=== PATIENT | male | born 1950 | race Caucasian/White ===

== ENCOUNTER 2016-08-21 01:24 | Inpatient (IN) | payer OTHER, MEDICARE ==
[~2016-08-21] VITALS: Ht 165.1 cm; Wt 81.2 kg
[2016-08-21] VITALS (7 sets, daily range): BP systolic 104–148; BP diastolic 50–63; PULSE 65–75; RESP 16–20; TEMP 97.4–98.9; O2SAT 95–100
[~2016-08-21 01:24] MED LIST: BP MED UNKNOWN; DULO20 PO; GLIP5 PO; GLUCTAB PO; NOVORP2 SQ; POTA-243 PO; ZOCO40TA PO
--- NOTE | 2016-08-21 01:58 | PD ---
HPI Chief Complaint: Psychiatric Symptoms Time Seen by Provider: 01:50 Travel History International Travel<30 days: No Contact w/Intl Traveler<30days: No Traveled to known affect area: No History of Present Illness HPI 66-year-old male presents under Lemus act initiated by the Police Department. The patient reports that for the past 4 days he has been feeling homicidal. He has had thoughts of hurting other people. He reports that he called the [place] helpline today and they called the police who placed him under a Lemus act. He reports that he doesn't feel that his psychiatric medication is helping. He doesn't remember the name of any of his medications. He is dependent on home oxygen and he believes it is because he has COPD. He admits to marijuana use on a regular basis. Denies any other drug use. Denies any suicidal ideation. He has no medical complaints at this time. PFSH Past Medical History Asthma: Yes (CHILDHOOD) Anxiety: Yes Depression: Yes Cardiac Catheterization: Yes Cardiovascular Problems: Yes (CABG) High Cholesterol: Yes Chest Pain: Yes Cerebrovascular Accident: Yes (TIA) Diabetes: Yes Patient Takes Glucophage: Yes Diminished Hearing: Yes (DEAF IN RIGHT EAR) Hypertension: Yes Respiratory: Yes (COPD) Myocardial Infarction: Yes Influenza Vaccination: Yes Past Surgical History Coronary Artery Bypass Graft: Yes (TRIPLE BYPASS 2004) Coronary Stent: Yes (X 3) Other Surgery: Yes (LEFT LUNG BIOPSY, NO MALIGNANCY FOUND) Social History Alcohol Use: No Tobacco Use: Yes (1-2 CIGARETTES A DAY) Substance Use: Yes (OCC POT.) Allergies-Medications (Allergen,Severity, Reaction): Coded Allergies: Contrast Media (Verified Allergy, Mild, 08/21/16) Reported Meds & Prescriptions Reported Meds & Active Scripts Active Reported Naproxen 500 Mg Tab 500 Mg PO BID Glipizide 10 Mg Tab 10 Mg PO BIDAC Take 30 minutes before a meal Plavix (Clopidogrel Bisulfate) 75 Mg Tab 75 Mg PO DAILY Robaxin (Methocarbamol) 500 Mg Tab 500 Mg PO HS Levothyroxine (Levothyroxine Sodium) 25 Mcg Tab 25 Mcg PO DAILY Zocor (Simvastatin) 40 Mg Tab 40 Mg PO DAILY Aspirin 81 (Aspirin) 81 Mg Tabdr 81 Mg PO DAILY Effexor (Venlafaxine HCl) 75 Mg Tab 75 Mg PO Q12H Carbidopa-Levodopa 10-100 Mg Tab 1 Tab PO Q8HR Ziprasidone 40 Mg Cap 40 Mg PO HS Gabapentin 300 Mg Cap 300 Mg PO TID Hydroxyzine Pamoate 50 Mg Cap 50 Mg PO HS Buspirone (Buspirone HCl) 10 Mg Tab 10 Mg PO TID Divalproex ER (Divalproex Sodium) 500 Mg Tab 500 Mg PO DAILY Lisinopril 5 Mg Tab 5 Mg PO DAILY Review of Systems Except as stated in HPI: all other systems reviewed are Neg Physical Exam Narrative GENERAL: Well-developed well-nourished male in no acute distress SKIN: Warm and dry. HEAD: Atraumatic. Normocephalic. EYES: Pupils equal and round. No scleral icterus. No injection or drainage. ENT: No nasal bleeding or discharge. Mucous membranes pink and moist. NECK: Trachea midline. No JVD. CARDIOVASCULAR: Regular rate and rhythm. No murmur appreciated. RESPIRATORY: No accessory muscle use. Some wheezing noted. GASTROINTESTINAL: Abdomen soft, non-tender, nondistended. Hepatic and splenic margins not palpable. MUSCULOSKELETAL: No obvious deformities. No clubbing. No cyanosis. No edema. NEUROLOGICAL: Awake and alert. No obvious cranial nerve deficits. Motor grossly within normal limits. Normal speech. PSYCHIATRIC: Appropriate mood and affect; insight and judgment normal. Data Data Last Documented VS Vital Signs Date Time Temp Pulse Resp B/P Pulse Ox O2 Delivery O2 Flow Rate FiO2 08/21/16 01:34 98.9 74 20 148/60 95 Orders Complete Blood Count With Diff (08/21/16 01:56) Comprehensive Metabolic Panel (08/21/16 01:56) Psych Screen (08/21/16 01:56) Drug Screen, Random Urine (08/21/16 01:56) Alcohol (Ethanol) (08/21/16 01:56) Salicylates (Aspirin) (08/21/16 01:56) Tylenol (Acetaminophen) (08/21/16 01:56) Labs Laboratory Tests Test 08/21/16 02:25 White Blood Count 9.2 TH/MM3 Red Blood Count 4.55 MIL/MM3 Hemoglobin 14.0 GM/DL Hematocrit 41.6 % Mean Corpuscular Volume 91.3 FL Mean Corpuscular Hemoglobin 30.8 PG Mean Corpuscular Hemoglobin 33.7 % Concent Red Cell Distribution Width 14.6 % Platelet Count 214 TH/MM3 Mean Platelet Volume 7.8 FL Neutrophils (%) (Auto) 62.0 % Lymphocytes (%) (Auto) 26.0 % Monocytes (%) (Auto) 6.7 % Eosinophils (%) (Auto) 4.3 % Basophils (%) (Auto) 1.0 % Neutrophils # (Auto) 5.7 TH/MM3 Lymphocytes # (Auto) 2.4 TH/MM3 Monocytes # (Auto) 0.6 TH/MM3 Eosinophils # (Auto) 0.4 TH/MM3 Basophils # (Auto) 0.1 TH/MM3 CBC Comment DIFF FINAL Differential Comment Sodium Level 145 MEQ/L Potassium Level 4.2 MEQ/L Chloride Level 107 MEQ/L Carbon Dioxide Level 30.6 MEQ/L Anion Gap 7 MEQ/L Blood Urea Nitrogen 19 MG/DL Creatinine 1.26 MG/DL Estimat Glomerular Filtration 57 ML/MIN Rate Random Glucose 103 MG/DL Calcium Level 8.6 MG/DL Total Bilirubin 0.5 MG/DL Aspartate Amino Transf 11 U/L (AST/SGOT) Alanine Aminotransferase LESS THAN 6 U/L (ALT/SGPT) Alkaline Phosphatase 74 U/L Total Protein 6.9 GM/DL Albumin 3.5 GM/DL Salicylates Level LESS THAN 1.7 MG/DL Acetaminophen Level LESS THAN 2.0 MCG/ML Ethyl Alcohol Level LESS THAN 3 MG/DL MDM Medical Decision Making Medical Screen Exam Complete: Yes Emergency Medical Condition: Yes Medical Record Reviewed: Yes Differential Diagnosis Acute psychosis, major depressive disorder, adjustment reaction, substance induced mood disorder, bipolar disorder Narrative Course 66-year-old male presents under Lemus act for psychiatric evaluation. Mental health screening discussed with the patient. Psychiatric screen ordered. He is medically cleared for psychiatric disposition. Diagnosis Primary Impression: Medical clearance for psychiatric admission Raymond Arzate Aug 21, 2016 01:57
[2016-08-21] MEDS ORDERED: BUSP10TA PO (02:12)
[2016-08-21] MEDS ORDERED: LEVO25TA4 PO (02:12)
[2016-08-21] MEDS ORDERED: GLIP10TA6 PO (02:12)
[2016-08-21] MEDS ORDERED: LISI-519 PO (02:12)
[2016-08-21] MEDS ORDERED: HYDR50CA PO (02:12)
[2016-08-21] MEDS ORDERED: ASPI-110 PO (02:12)
[2016-08-21] MEDS ORDERED: ZIPR1CAP8 PO (02:12)
[2016-08-21] MEDS ORDERED: DIVA500T3 PO (02:12)
[2016-08-21] MEDS ORDERED: ROBA500T PO (02:12)
[2016-08-21] MEDS ORDERED: CARB10TA2 PO (02:12)
[2016-08-21] MEDS ORDERED: GABA300C5 PO (02:12)
[2016-08-21] MEDS ORDERED: PLAV75TA29 PO (02:12)
[2016-08-21] MEDS ORDERED: VENL75TA PO (02:12)
[2016-08-21] MEDS ORDERED: NAPR500T PO (02:12)
[2016-08-21] MEDS ORDERED: ZOCO40TA PO (02:12)
[2016-08-21 03:02] LABS: ALT (GPT) LESS THAN 6 U/L (12-78); ANION GAP 7 MEQ/L (5-15); AST (GOT) 11 U/L (15-37); BICARBONATE 30.6 MEQ/L (21.0-32.0); BLOOD UREA NITROGEN 19 MG/DL (7-18); CHLORIDE 107 MEQ/L (98-107); GLOMERULAR FILTRATION RATE 57 ML/MIN (>89); POTASSIUM 4.2 MEQ/L (3.5-5.1); SODIUM (NA) 145 MEQ/L (136-145)
[2016-08-21 03:04] LABS: AUTOMATED NEUTROPHIL # 5.7 TH/MM3 (1.8-7.7); BASOPHIL # 0.1 TH/MM3 (0-0.2); EOSINOPHIL # 0.4 TH/MM3 (0-0.4); EOSINOPHIL % 4.3 % (0.0-4.0); HEMATOCRIT 41.6 % (39.0-51.0); HEMO FLAGS DIFF FINAL; LYMPHOCYTE # 2.4 TH/MM3 (1.0-4.8); MEAN CELL VOLUME 91.3 FL (80.0-100.0); MEAN CORPUSCULAR HEMOGLOBIN 30.8 PG (27.0-34.0); MEAN CORPUSCULAR HGB CONC 33.7 % (32.0-36.0); MONO % 6.7 % (0.0-8.0); PLATELET COUNT 214 TH/MM3 (150-450); RED BLOOD COUNT 4.55 MIL/MM3 (4.50-5.90); RED CELL DISTRIBUTION WIDTH 14.6 % (11.6-17.2); WHITE BLOOD COUNT 9.2 TH/MM3 (4.0-11.0)
[2016-08-21 03:05] LABS: ACETAMINOPHEN LESS THAN 2.0 MCG/ML (10.0-30.0); ALKALINE PHOSPHATASE 74 U/L (45-117); TOTAL BILIRUBIN ADULT 0.5 MG/DL (0.2-1.0)
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
[2016-08-21] MEDS ORDERED: ACETAMINOPHEN 325 MG TAB PO PRN (09:45)
[2016-08-21] MEDS ORDERED: DEXTROSE 50% IN WATER 50 ML VIAL(D50) IV PUSH PRN (09:45)
[2016-08-21] MEDS ORDERED: ALUMINUM/MAGNESIUM/SIMETH 30 ML CUP PO PRN (09:45)
[2016-08-21] MEDS ORDERED: MAGNESIUM HYDROXIDE SUSP 30 ML CUP PO PRN (09:45)
[2016-08-21] MEDS ORDERED: diphenhydrAMINE HCL 50 MG CAP PO PRN (09:45)
[2016-08-21] MEDS ORDERED: LORazepam 2 MG/ML VIAL IM PRN (09:45)
[2016-08-21] MEDS ORDERED: diphenhydrAMINE HCL 50 MG/ML VIAL IM PRN (09:45)
[2016-08-21] MEDS ORDERED: GLUCAGON 1 MG/ML VIAL OTHER PRN (09:45)
[2016-08-21] MEDS ORDERED: LORazepam 0.5 MG TAB PO PRN (09:45)
[2016-08-21] MEDS ORDERED: INSULIN ASPART SUPPLEMENTAL SCALE SQ SCH (11:00)
[2016-08-21] MEDS: INSULIN ASPART SUPPLEMENTAL SCALE SQ SCH ×3 (11:00→21:00)
[2016-08-21] MEDS: GABAPENTIN 300 MG CAP PO SCH ×2 (15:16→18:24)
[2016-08-21] MEDS: VENLAFAXINE HCL XR 75 MG CAP PO SCH (15:17)
[2016-08-21] MEDS: CARBIDOPA/LEVODOPA 10 MG/100 MG TAB PO SCH ×2 (15:17→21:45)
[2016-08-21] MEDS: glipiZIDE 10 MG TAB PO SCH (15:17)
[2016-08-21] MEDS: busPIRone HCL 10 MG TAB PO SCH ×2 (15:17→18:24)
[2016-08-21] MEDS ORDERED: RESP: ALBUTEROL 0.63 MG/3 ML NEB (PRN) NEB (16:30)
--- NOTE | 2016-08-21 16:33 | PD.CONS ---
[facility] By Dr. Gonzalez Reason for Consult Medical management [facility]: History of Present Illness This is a 66-year-old male who was brought in under a police Lemus act due to homicidal ideations. He has had thoughts of hurting other people. He reports that he called the [place] helpline today and they called the police who placed him under a Lemus act. He reports that he doesn't feel that his psychiatric medication is helping. He doesn't remember the name of any of his medications. Consultation was requested to evaluate and manage multiple medical conditions which are COPD, chronic respiratory failure on home oxygen, coronary artery disease status post stent and CABG, hyperlipidemia, hypertension, diabetes mellitus, TIA, hypothyroidism and PD. At this time he denies being homicidal. No complaints of fever, chills, cough and chest pain. He has chronic dyspnea on exertion which is stable. On exam he has mild expiratory wheezes oxygen saturation 100% on 2 L. Review of Systems Constitutional: DENIES: Diaphoretic episodes, Fatigue, Fever, Weight gain, Weight loss, Chills, Dizziness, Change in appetite, Night Sweats Endocrine: DENIES: Heat/cold intolerance, Polydipsia, Polyuria, Polyphagia Eyes: DENIES: Blurred vision, Diplopia, Vision loss, Photosensitivity Ears, nose, mouth, throat: DENIES: Tinnitus, Vertigo, Throat pain, Hoarseness, Epistaxis, Odynophagia Respiratory: COMPLAINS OF: Wheezing, Shortness of breath, DENIES: Cough, Hemoptysis, Sputum production Cardiovascular: DENIES: Chest pain, Palpitations, Syncope, Dyspnea on Exertion , PND, Lower Extremity Edema, Orthopnea, Claudication Gastrointestinal: DENIES: Abdominal pain, Black stools, Bloody stools, Constipation, Diarrhea, Nausea, Vomiting, Difficulty Swallowing, Anorexia Genitourinary: DENIES: Urinary frequency, Urinary incontinence, Urgency, Hematuria, Dysuria, Nocturia, Penile Discharge Integumentary: DENIES: Rash Neurologic: DENIES: Headache, Localized weakness, Seizures, Tremor, Poor Balance Psychiatric: COMPLAINS OF: Homicidal Ideation, DENIES: Anxiety, Confusion, Depression, Hallucinations, Agitation, Suicidal Ideation, Delusions Past Family Social History Allergies: Coded Allergies: Contrast Media (Verified Allergy, Mild, 08/21/16) Past Medical History As previously mentioned Past Surgical History As previously mentioned Reported Medications Naproxen 500 Mg Tab 500 Mg PO BID Glipizide 10 Mg Tab 10 Mg PO BIDAC Take 30 minutes before a meal Plavix (Clopidogrel Bisulfate) 75 Mg Tab 75 Mg PO DAILY Robaxin (Methocarbamol) 500 Mg Tab 500 Mg PO HS Levothyroxine (Levothyroxine Sodium) 25 Mcg Tab 25 Mcg PO DAILY Zocor (Simvastatin) 40 Mg Tab 40 Mg PO DAILY Aspirin 81 (Aspirin) 81 Mg Tabdr 81 Mg PO DAILY Effexor (Venlafaxine HCl) 75 Mg Tab 75 Mg PO Q12H Carbidopa-Levodopa 10-100 Mg Tab 1 Tab PO Q8HR Ziprasidone 40 Mg Cap 40 Mg PO HS Gabapentin 300 Mg Cap 300 Mg PO TID Hydroxyzine Pamoate 50 Mg Cap 50 Mg PO HS Buspirone (Buspirone HCl) 10 Mg Tab 10 Mg PO TID Divalproex ER (Divalproex Sodium) 500 Mg Tab 500 Mg PO DAILY Lisinopril 5 Mg Tab 5 Mg PO DAILY Family History Diabetes mellitus Social History Smokes 1-2 cigarettes a day occasional alcohol use abuse marijuana Physical Exam Vital Signs Vital Signs Date Time Temp Pulse Resp B/P Pulse Ox O2 Delivery O2 Flow Rate FiO2 08/21/16 15:59 100 Nasal Cannula 2.00 08/21/16 11:45 97.4 72 19 125/60 100 08/21/16 11:26 75 16 141/63 98 Room Air 08/21/16 08:34 65 16 104/50 98 Nasal Cannula 3 08/21/16 01:34 98.9 74 20 148/60 95 Physical Exam GENERAL: This is a well-nourished, well-developed patient, in no apparent distress. SKIN: No rashes, ecchymoses or lesions. Cool and dry. HEAD: Atraumatic. Normocephalic. No temporal or scalp tenderness. EYES: Pupils equal round and reactive. Extraocular motions intact. No scleral icterus. No injection or drainage. ENT: Nose without bleeding, purulent drainage or septal hematoma. Throat without erythema, tonsillar hypertrophy or exudate. Uvula midline. Airway patent. NECK: Trachea midline. No JVD or lymphadenopathy. Supple, nontender, no meningeal signs. CARDIOVASCULAR: Regular rate and rhythm without murmurs, gallops, or rubs. RESPIRATORY: Mild expiratory wheezes GASTROINTESTINAL: Abdomen soft, non-tender, nondistended. No guarding. MUSCULOSKELETAL: Extremities without clubbing, cyanosis, or edema. No joint tenderness, effusion, or edema noted. No calf tenderness. Negative Homans sign bilaterally. NEUROLOGICAL: Awake and alert. Cranial nerves II through XII intact. Motor and sensory grossly within normal limits. Five out of 5 muscle strength in all muscle groups. Normal speech. Laboratory Laboratory Tests Test 08/21/16 08/21/16 02:25 14:20 White Blood Count 9.2 Red Blood Count 4.55 Hemoglobin 14.0 Hematocrit 41.6 Mean Corpuscular Volume 91.3 Mean Corpuscular Hemoglobin 30.8 Mean Corpuscular Hemoglobin 33.7 Concent Red Cell Distribution Width 14.6 Platelet Count 214 Mean Platelet Volume 7.8 Neutrophils (%) (Auto) 62.0 Lymphocytes (%) (Auto) 26.0 Monocytes (%) (Auto) 6.7 Eosinophils (%) (Auto) 4.3 Basophils (%) (Auto) 1.0 Neutrophils # (Auto) 5.7 Lymphocytes # (Auto) 2.4 Monocytes # (Auto) 0.6 Eosinophils # (Auto) 0.4 Basophils # (Auto) 0.1 CBC Comment DIFF FINAL Differential Comment Sodium Level 145 Potassium Level 4.2 Chloride Level 107 Carbon Dioxide Level 30.6 Anion Gap 7 Blood Urea Nitrogen 19 Creatinine 1.26 Estimat Glomerular Filtration 57 Rate Random Glucose 103 Calcium Level 8.6 Total Bilirubin 0.5 Aspartate Amino Transf 11 (AST/SGOT) Alanine Aminotransferase LESS THAN 6 (ALT/SGPT) Alkaline Phosphatase 74 Total Protein 6.9 Albumin 3.5 Salicylates Level LESS THAN 1.7 Acetaminophen Level LESS THAN 2.0 Valproic Acid (Depakene) Level 23 Ethyl Alcohol Level LESS THAN 3 Ammonia 26 Result Diagram: 08/21/1622408/21/16224 Assessment and Plan Assessment and Plan This is a 66-year-old male who was brought in under a police Lemus act due to homicidal ideations. He has had thoughts of hurting other people. Consultation was requested to evaluate and manage multiple medical conditions which are COPD, chronic respiratory failure on home oxygen, coronary artery disease status post stent and CABG, hyperlipidemia, hypertension, diabetes mellitus, TIA, hypothyroidism and PD. COPD with chronic respiratory failure. Patient with active wheezing but denies cough, fever and shortness of breath. Restart nebulization and continue oxygen. Consider steroids Coronary artery disease status post stent and CABG. Patient denies chest pain. Continue aspirin, Plavix, statin. No beta hermila for now secondary to COPD Hypertension. Stable continue to monitor. Lisinopril currently on hold by attending Diabetes mellitus. Continue glipizide and monitor fingerstick with sliding scale coverage. Obtain A1c. Hyperlipidemia. Continue statin follow-up lipid profile TIA. Stable continue antiplatelets Hypothyroidism continue Synthroid and follow-up TSH PD. Continue Sinemet. DVT prophylaxis patient ambulatory Discussed Condition With Patient Kenneth Vincent MD Aug 21, 2016 16:33
[2016-08-21 17:38] LABS: BLOOD, URINE NEG (NEG); COMMENT (UR) CULT NOT INDICATED; CULTURE IF INDICATED CULT NOT INDICATED; GLUCOSE,URINE 300 mg/dL (NEG); KETONE, URINE NEG (NEG); NITRITE,URINE NEG (NEG); URINE COLOR YELLOW (YELLW/STRAW)
--- NOTE | 2016-08-21 17:46 | RADRPT ---
EXAM DATE/TIME: 08/21/2016 16:56 [place] COMPARISON: No previous studies available for comparison. INDICATIONS : Cough and difficulty breathing. MEDICAL HISTORY : Hypertension. Hypercholesterolemia. Chronic obstructive pulmonary disease. TIA. Diabetes. SURGICAL HISTORY : Coronary artery stent. CABG. ENCOUNTER: Initial ACUITY: 1 day PAIN SCORE: 0/10 LOCATION: Bilateral chest FINDINGS: The cardiac silhouette is normal in transverse diameter. Median sternotomy wires are present. There a re findings of congestive heart failure with interstitial and alveolar opacity bilaterally. Small noam ateral pleural effusions are identified. CONCLUSION: 1. Cardiomegaly and findings of congestive heart failure. Marck Bro MD on August 21, 2016 at 17:44 Board Certified Radiologist. This report was verified electronically.
[2016-08-21 18:22] LABS: AMPHETAMINE, URINE NEG (NEG); BARBITURATES, URINE NEG (NEG); COCAINE, URINE NEG (NEG)
[2016-08-21] MEDS: ZIPRASIDONE HCL 40 MG CAP PO SCH (18:23)
[2016-08-21] MEDS: RESP: ALBUTEROL 2.5 MG/IPRATROPIUM 0.5 MG NEB (SCH) NEB (20:13)
[2016-08-21] MEDS: METHOCARBAMOL 500 MG TAB PO SCH (21:45)
[2016-08-22 06:00] VITALS: BP 105/57; PULSE 66; RESP 16; TEMP 98.1; O2SAT 99
[2016-08-22] MEDS: glipiZIDE 10 MG TAB PO SCH ×2 (06:15→16:00)
[2016-08-22] MEDS: CARBIDOPA/LEVODOPA 10 MG/100 MG TAB PO SCH ×3 (06:15→21:01)
[2016-08-22] MEDS: INSULIN ASPART SUPPLEMENTAL SCALE SQ SCH ×4 (06:16→20:58)
[2016-08-22] MEDS: RESP: ALBUTEROL 2.5 MG/IPRATROPIUM 0.5 MG NEB (SCH) NEB ×4 (08:00→20:00)
[2016-08-22 08:29] LABS: ANION GAP 7 MEQ/L (5-15); BICARBONATE 30.9 MEQ/L (21.0-32.0); BLOOD UREA NITROGEN 18 MG/DL (7-18); CHLORIDE 102 MEQ/L (98-107); FREE T4 0.72 NG/DL (0.76-1.46); GLOMERULAR FILTRATION RATE 84 ML/MIN (>89); LDL CHOLESTEROL 61 MG/DL (0-99); SODIUM (NA) 140 MEQ/L (136-145)
[2016-08-22 08:58] VITALS: O2SAT 94
[2016-08-22] MEDS: ZIPRASIDONE HCL 40 MG CAP PO SCH (09:00)
[2016-08-22] MEDS ORDERED: LEVOTHYROXINE SODIUM 25 MCG TAB PO SCH (09:00)
[2016-08-22] MEDS: GABAPENTIN 300 MG CAP PO SCH ×3 (09:01→16:49)
[2016-08-22] MEDS: PRAVASTATIN SOD 80 MG TAB PO SCH (09:02)
[2016-08-22] MEDS: VENLAFAXINE HCL XR 75 MG CAP PO SCH (09:02)
[2016-08-22] MEDS: CLOPIDOGREL 75 MG TAB PO SCH (09:02)
[2016-08-22] MEDS: DIVALPROEX SODIUM E.R. 500 MG TAB PO SCH (09:02)
[2016-08-22] MEDS: ASPIRIN EC 81 MG TABEC PO SCH (09:02)
[2016-08-22] MEDS: busPIRone HCL 10 MG TAB PO SCH ×3 (09:03→16:49)
[2016-08-22] MEDS: NICOTINE 21 MG/24 HR PATCH T-DERMAL SCH (09:03)
--- NOTE | 2016-08-22 14:39 | HHI.PYPN ---
Subjective Remarks Patient seen and examined with nurse. Chart reviewed. Case discussed with nursing staff who reports patient is pleasant and cooperative. On my examination today, the patient complains of feeling irritable still. He denies any homicidal ideation but notes that there is no one around on the unit to provoke him. Affect remains a little dysphoric. Says he had trouble sleeping last night. He misses the Seroquel that he normally takes. We discussed using Seroquel as his primary mood stabilizer as this would be better in light of his Parkinson's disease and also could help with sleep, potentially replacing 3 of his medications with a single psychotropic. He is in agreement with this plan. Denies side effects from current medications. Review of Systems Except as stated in HPI: all other systems reviewed are Neg Objective Alert: Yes [place]: Person, Place (at least), Situation Mood: Other (irritable) Affect: Other (somewhat dysphoric) Memory Intact: Comment (intact on clinical exam) Hallucinations: Other (no AVH) Delusions: No Delusion Type: Other (no delusions) Suicidal: Ideation (no SI) Homicidal: Ideation (no HI) Insight/Judgement Fair Remarks No motor abnormalities noted. Thought process linear. Speech within normal limits for rate, tone and volume. Labs Test 08/22/16 05:55 Sodium Level 140 MEQ/L Potassium Level 4.0 MEQ/L Chloride Level 102 MEQ/L Carbon Dioxide Level 30.9 MEQ/L Anion Gap 7 MEQ/L Blood Urea Nitrogen 18 MG/DL Creatinine 0.91 MG/DL Estimat Glomerular Filtration 84 ML/MIN Rate Random Glucose 151 MG/DL Calcium Level 9.5 MG/DL Triglycerides Level 131 MG/DL Cholesterol Level 118 MG/DL LDL Cholesterol 61 MG/DL HDL Cholesterol 31.0 MG/DL Cholesterol/HDL Ratio 3.80 RATIO Free Thyroxine 0.72 NG/DL Thyroid Stimulating Hormone 2.010 uIU/ML 3rd Gen Labs reviewed. TSH within normal limits. Renal function improved. Vitals/IOs Vital Signs Date Time Temp Pulse Resp B/P Pulse Ox O2 Delivery O2 Flow Rate FiO2 08/22/16 08:58 94 Nasal Cannula 2.00 08/22/16 06:00 98.1 66 16 105/57 Intake and Output 08/21/16 08/21/16 08/22/16 08:00 16:00 00:00 Intake Total 360 ml 360 ml Balance 360 ml 360 ml Assessment & Plan Problem List: (1) Bipolar disorder ICD Code: F31.9 (2) Cannabis abuse ICD Code: F12.10 Assessment & Plan Add Seroquel 100 mg at bedtime. Patient was able to tolerate 50 mg dose at bedtime as a home dose. Discontinue Geodon. Continue Effexor and BuSpar along with Depakote as ordered. To consider further titration of Depakote and Seroquel for mood stabilization. Risks and benefits of above med changes discussed with patient, and he is in agreement. Appreciate hospitalist workday consultant input. Continue other medications and care as ordered. Justification for Cont. Inpt. Monitoring for impairments in safety. Medication changes in process. Risk of decompensation in a less restrictive environment. Discharge Planning Pending psychiatric stabilization. I anticipate the patient will require an additional 3-5 inpatient days. Request HC Surrog/Guard Advoc?: No Problem Qualifiers (1) Bipolar disorder: Qualified Code: F31.4 - Bipolar disorder, current episode depressed, severe, without psychotic features Marck Gonzalez MD Aug 22, 2016 14:39
[2016-08-22 16:17] LABS: HEMOGLOBIN A1a 1.2 %; HEMOGLOBIN A1b 2.1 %; HEMOGLOBIN Ao 82.1 %; HEMOGLOBIN LA1C 2.4 %; HEMOGLOBIN P3 4.2 %
[2016-08-22 20:00] VITALS: BP 113/56; PULSE 99; RESP 16; TEMP 98; O2SAT 96
[2016-08-22] MEDS ORDERED: QUEtiapine FUMARATE 100 MG TAB PO SCH (21:00)
[2016-08-22] MEDS: METHOCARBAMOL 500 MG TAB PO SCH (21:01)
[2016-08-22] MEDS: diphenhydrAMINE HCL 50 MG CAP PO PRN (21:01)
[2016-08-22 21:13] VITALS: O2SAT 96
[2016-08-23] MEDS: CARBIDOPA/LEVODOPA 10 MG/100 MG TAB PO SCH ×3 (05:35→20:53)
[2016-08-23] MEDS: glipiZIDE 10 MG TAB PO SCH ×2 (05:35→16:00)
[2016-08-23] MEDS: LEVOTHYROXINE SODIUM 25 MCG TAB PO SCH (05:35)
[2016-08-23] MEDS: INSULIN ASPART SUPPLEMENTAL SCALE SQ SCH ×4 (05:55→20:52)
[2016-08-23 06:00] VITALS: BP 115/66; PULSE 85; RESP 17; TEMP 97.7; O2SAT 94
[2016-08-23] MEDS: RESP: ALBUTEROL 2.5 MG/IPRATROPIUM 0.5 MG NEB (SCH) NEB ×4 (08:00→19:31)
[2016-08-23 08:57] VITALS: O2SAT 100
[2016-08-23] MEDS: REMOVE OLD PATCH T-DERMAL SCH (09:00)
[2016-08-23] MEDS: NICOTINE 21 MG/24 HR PATCH T-DERMAL SCH (09:16)
[2016-08-23] MEDS: VENLAFAXINE HCL XR 75 MG CAP PO SCH (09:17)
[2016-08-23] MEDS: ASPIRIN EC 81 MG TABEC PO SCH (09:17)
[2016-08-23] MEDS: PRAVASTATIN SOD 80 MG TAB PO SCH (09:17)
[2016-08-23] MEDS: GABAPENTIN 300 MG CAP PO SCH ×3 (09:17→17:31)
[2016-08-23] MEDS: CLOPIDOGREL 75 MG TAB PO SCH (09:17)
[2016-08-23] MEDS: busPIRone HCL 10 MG TAB PO SCH ×3 (09:17→17:31)
[2016-08-23] MEDS: DIVALPROEX SODIUM E.R. 500 MG TAB PO SCH (09:17)
--- NOTE | 2016-08-23 10:03 | HHI.PYPN ---
Subjective Remarks Patient seen and examined. Chart reviewed. Case discussed with nursing staff who reports patient slept well overnight and denies any suicidal or homicidal ideation. On my examination today, the patient presents as irritable and dysphoric. He says that he is "upset. I don't give a damn." Denies any specific trigger, just says that he is feeling irritable this morning. "I don' t want nobody around me." Notes that he was able to sleep through the night but awoke at 4:30am to void and could not get back to sleep. No SI/HI. Denies side effects from meds. Agreeable to med adjustments as detailed below. Review of Systems Except as stated in HPI: all other systems reviewed are Neg Objective Alert: Yes [place]: Person, Place, Situation Mood: Other (irritable) Affect: Restricted (dysphoric) Memory Intact: Comment (intact on clinical exam) Hallucinations: Other (denies AVH) Delusions: No Delusion Type: Other (no delusions elicited) Suicidal: Ideation (no SI) Homicidal: Ideation (no HI) Insight/Judgement Fair Remarks No new motor abnormalities noted. Thought process linear. Speech within normal limits. Labs Labs reviewed Vitals/IOs Vital Signs Date Time Temp Pulse Resp B/P Pulse Ox O2 Delivery O2 Flow Rate FiO2 08/23/16 08:57 100 Nasal Cannula 2.00 08/23/16 06:00 97.7 85 17 115/66 Intake and Output 08/22/16 08/22/16 08/23/16 08:00 16:00 00:00 Intake Total 600 ml 1440 ml Balance 600 ml 1440 ml Assessment & Plan Problem List: (1) Bipolar disorder ICD Code: F31.9 (2) Cannabis abuse ICD Code: F12.10 Assessment & Plan Titrate Seroquel to 150 mg at bedtime for mood stabilization. Continue Depakote as ordered for now but to consider titrating this medication into the therapeutic range. Continue Effexor and BuSpar as ordered. Continue to monitor on the inpatient unit. Continue other medications include care as ordered. Justification for Cont. Inpt. Monitoring for impairments in safety. Medication changes in process. Risk for decompensation pending psychiatric stabilization. Discharge Planning Pending psychiatric stabilization. I would anticipate discharge middle of next week. Request HC Surrog/Guard Advoc?: No Problem Qualifiers (1) Bipolar disorder: Qualified Code: F31.4 - Bipolar disorder, current episode depressed, severe, without psychotic features Marck Gonzalez MD Aug 23, 2016 10:03
[2016-08-23] MEDS ORDERED: PILL SPLITTER OTHER PRN (11:00)
--- NOTE | 2016-08-23 11:44 | HHI.PR ---
Subjective Remarks Follow-up on patient with COPD with chronic respiratory failure, hypertension, diabetes and CAD status post stent and CABG. Patient seen and examined today. Patient reports cough without sputum production. Complains of wheezing. Denies any chest pain or abdominal pain. No nausea or vomiting. No fever. Objective Vitals Vital Signs Date Time Temp Pulse Resp B/P Pulse Ox O2 Delivery O2 Flow Rate FiO2 08/23/16 08:57 100 Nasal Cannula 2.00 08/23/16 06:00 97.7 85 17 115/66 94 08/22/16 21:13 96 Nasal Cannula 2.00 08/22/16 20:00 98.0 99 16 113/56 96 I/O 08/22/16 08/22/16 08/22/16 08/23/16 08/23/16 08/23/16 07:00 15:00 23:00 07:00 15:00 23:00 Intake Total 0 ml 600 ml 1440 ml 0 ml Balance 0 ml 600 ml 1440 ml 0 ml Intake Oral 0 ml 600 ml 1440 ml 0 ml # Voids 1 2 2 Result Diagram: 08/21/16 0225 08/22/16 0555 Imaging Last Impressions Chest X-Ray 08/21/16 0000 Signed Impressions: Service Date/Time: Sunday, August 21, 2016 16:56 - CONCLUSION: 1. Cardiomegaly and findings of congestive heart failure. Marck Bro MD Objective Remarks GENERAL: This is a well-nourished, well-developed patient, in no apparent distress. Awake, lying in hospital bed. SKIN: No rashes, ecchymoses or lesions. Cool and dry. HEAD: Atraumatic. Normocephalic. EYES: EOMI. NECK: Trachea midline. No JVD or lymphadenopathy. Supple, nontender, no meningeal signs. CARDIOVASCULAR: Regular rate and rhythm without murmurs, gallops, or rubs. RESPIRATORY: Significant expiratory wheezes noted with scattered rhonchi. GASTROINTESTINAL: Abdomen soft, non-tender, nondistended. No guarding. MUSCULOSKELETAL: Extremities without clubbing, cyanosis, or edema. No joint tenderness, effusion, or edema noted. No calf tenderness. NEUROLOGICAL: Awake and alert. Cranial nerves II through XII intact. Motor and sensory grossly within normal limits. Five out of 5 muscle strength in all muscle groups. Normal speech. Medications and IVs Current Medications Medications (Trade) Dose Ordered Sig/Sherry Route Start Time Stop Time Status Last Admin (Ativan) 0.5 mg Q12H PRN PO 08/21/16 09:45 (Ativan Inj) 0.5 mg Q12H PRN IM 08/21/16 09:45 (Benadryl) 50 mg Q6H PRN PO 08/21/16 09:45 08/22/16 21:01 (Benadryl Inj) 50 mg Q6H PRN IM 08/21/16 09:45 (Benadryl) 50 mg HS PRN PO 08/21/16 09:45 08/21/16 21:45 (Tylenol) 650 mg Q4H PRN PO 08/21/16 09:45 (Milk Of Magnesia Liq) 30 ml DAILY PRN PO 08/21/16 09:45 (Mag-Al Plus Susp Liq) 30 ml Q6H PRN PO 08/21/16 09:45 (Habitrol 21 Mg Patch.24 Hr) 1 patch DAILY T-DERMAL 08/22/16 09:00 08/23/16 09:16 Miscellaneous Information 1 DAILY T-DERMAL 08/23/16 09:00 08/23/16 09:00 (Ecotrin Ec) 81 mg DAILY PO 08/22/16 09:00 08/23/16 09:17 (Buspar) 10 mg TID PO 08/21/16 13:00 08/23/16 12:58 (Sinemet 10-100 Mg) 1 tab Q8HR PO 08/21/16 14:00 08/23/16 12:59 (Plavix) 75 mg DAILY PO 08/22/16 09:00 08/23/16 09:17 (Depakote Er) 500 mg DAILY PO 08/22/16 09:00 08/23/16 09:17 (Neurontin) 300 mg TID PO 08/21/16 13:00 08/23/16 12:58 (Glucotrol) 10 mg BIDAC PO 08/21/16 16:00 08/23/16 05:35 (Robaxin) 500 mg HS PO 08/21/16 21:00 08/22/16 21:01 (Pravachol) 80 mg DAILY PO 08/22/16 09:00 08/23/16 09:17 (Effexor Xr) 150 mg DAILY PO 08/21/16 11:00 08/23/16 09:17 (D50w (Vial) Inj) 25 ml UNSCH PRN IV PUSH 08/21/16 09:45 (Glucagon Inj) 1 mg UNSCH PRN OTHER 08/21/16 09:45 (Synthroid) 25 mcg DAILY@0600 PO 08/23/16 06:00 08/23/16 05:35 (SEROquel) 150 mg HS PO 08/23/16 21:00 (Pill Splitter) 1 ea UNSCH PRN OTHER 08/23/16 11:00 (Zithromax) 250 mg DAILY PO 08/24/16 09:00 (Deltasone) 40 mg DAILY PO 08/23/16 11:45 08/26/16 11:44 08/23/16 12:58 A/P Assessment and Plan This is a 66-year-old male who was brought in under a police Lemus act due to homicidal ideations. He has had thoughts of hurting other people. Consultation was requested to evaluate and manage multiple medical conditions which are COPD, chronic respiratory failure on home oxygen, coronary artery disease status post stent and CABG, hyperlipidemia, hypertension, diabetes mellitus, TIA, hypothyroidism and PD. AECOPD with chronic respiratory failure. Patient with active wheezing and increased cough. Continue nebulization and continue oxygen. Begin Z-Bean and oral steroid boost. Coronary artery disease status post stent and CABG. Patient denies chest pain. Continue aspirin, Plavix, statin. No beta hermila for now secondary to COPD. Now with increased cough. Chest x-ray reveals cardiomegaly and findings of congestive heart failure but BNP 12. Continue to monitor closely and will consider echocardiogram. Hypertension. Stable continue to monitor. Lisinopril currently on hold by attending. BP 115/66. Diabetes mellitus. Continue glipizide and monitor fingerstick with sliding scale coverage. A1c 7.4. Blood sugars 76-104 today. Continue to monitor closely while on oral steroid. Hyperlipidemia. Continue statin follow-up lipid profile reveals good control. TIA. Stable continue antiplatelets Hypothyroidism continue Synthroid and follow-up TSH 2.010. PD. Continue Sinemet. DVT prophylaxis patient ambulatory Discussed with patient and nursing staff Written by Milly Wilburn PA-C acting as scribe for Dr. Vincent on 08/23/16 at 11:44. All or portions of this note were transcribed by didier Wilburn PA-C . I, Dr. Kenneth Vincent personally performed the history, physical exam, and medical decision making; and confirmed the accuracy of the information in the transcribed note. Authenticated by Dr. Kenneth Vincent on 08/23/16 at 15:37. Milly Wilburn Aug 23, 2016 11:44 Kenneth Vincent MD Aug 23, 2016 15:38
[2016-08-23] MEDS ORDERED: AZITHROMYCIN 250 MG TAB PO ONE (11:45)
[2016-08-23] MEDS: predniSONE 20 MG TAB PO SCH (12:58)
[2016-08-23] MEDS: QUEtiapine FUMARATE 100 MG TAB PO SCH (20:52)
[2016-08-23] MEDS: METHOCARBAMOL 500 MG TAB PO SCH (20:53)
[2016-08-24] MEDS: CARBIDOPA/LEVODOPA 10 MG/100 MG TAB PO SCH ×3 (06:07→21:01)
[2016-08-24] MEDS: LEVOTHYROXINE SODIUM 25 MCG TAB PO SCH (06:07)
[2016-08-24] MEDS: INSULIN ASPART SUPPLEMENTAL SCALE SQ SCH ×4 (06:14→21:00)
[2016-08-24 06:19] VITALS: BP 116/59; PULSE 97; RESP 16; TEMP 98.5; O2SAT 97
[2016-08-24] MEDS: glipiZIDE 10 MG TAB PO SCH ×2 (07:00→17:25)
[2016-08-24] MEDS: busPIRone HCL 10 MG TAB PO SCH ×3 (08:59→17:25)
[2016-08-24] MEDS: AZITHROMYCIN 250 MG TAB PO SCH (08:59)
[2016-08-24] MEDS: CLOPIDOGREL 75 MG TAB PO SCH (08:59)
[2016-08-24] MEDS: predniSONE 20 MG TAB PO SCH (09:00)
[2016-08-24] MEDS: ASPIRIN EC 81 MG TABEC PO SCH (09:00)
[2016-08-24] MEDS: GABAPENTIN 300 MG CAP PO SCH ×3 (09:00→17:25)
[2016-08-24] MEDS: VENLAFAXINE HCL XR 75 MG CAP PO SCH (09:00)
[2016-08-24] MEDS: NICOTINE 21 MG/24 HR PATCH T-DERMAL SCH (09:00)
[2016-08-24] MEDS: DIVALPROEX SODIUM E.R. 500 MG TAB PO SCH (09:00)
[2016-08-24] MEDS: PRAVASTATIN SOD 80 MG TAB PO SCH (09:00)
[2016-08-24] MEDS: REMOVE OLD PATCH T-DERMAL SCH (09:00)
[2016-08-24] MEDS: RESP: ALBUTEROL 2.5 MG/IPRATROPIUM 0.5 MG NEB (SCH) NEB ×4 (09:09→20:34)
[2016-08-24 09:11] VITALS: O2SAT 98
--- NOTE | 2016-08-24 14:17 | HHI.PR ---
Subjective Remarks Follow-up on patient with COPD with chronic respiratory failure, hypertension, diabetes and CAD status post stent and CABG. Patient seen and examined today. Patient reports breathing is improved. Still wheezing but better. He continues to have cough without sputum production. No SOB or chest pain. No fever. Objective Vitals Vital Signs Date Time Temp Pulse Resp B/P Pulse Ox O2 Delivery O2 Flow Rate FiO2 08/24/16 09:11 98 Nasal Cannula 2.00 08/24/16 06:19 98.5 97 16 116/59 97 I/O 08/23/16 08/23/16 08/23/16 08/24/16 08/24/16 08/24/16 07:00 15:00 23:00 07:00 15:00 23:00 Intake Total 0 ml 240 ml 300 ml Balance 0 ml 240 ml 300 ml Intake Oral 0 ml 240 ml 300 ml # Voids 2 2 2 Result Diagram: 08/21/16 0225 08/22/16 0555 Imaging Last Impressions Chest X-Ray 08/21/16 0000 Signed Impressions: Service Date/Time: Sunday, August 21, 2016 16:56 - CONCLUSION: 1. Cardiomegaly and findings of congestive heart failure. Marck Bro MD Objective Remarks GENERAL: This is a well-nourished, well-developed patient, in no apparent distress. Awake, lying in hospital bed. SKIN: No rashes, ecchymoses or lesions. Cool and dry. HEAD: Atraumatic. Normocephalic. EYES: EOMI. NECK: Trachea midline. No JVD or lymphadenopathy. Supple, nontender, no meningeal signs. CARDIOVASCULAR: Regular rate and rhythm without murmurs, gallops, or rubs. RESPIRATORY: Still with expiratory wheezes and scattered rhonchi but improved from yesterdays examination. GASTROINTESTINAL: Abdomen soft, non-tender, nondistended. No guarding. MUSCULOSKELETAL: Extremities without clubbing, cyanosis, or edema. No joint tenderness, effusion, or edema noted. No calf tenderness. NEUROLOGICAL: Awake and alert. Cranial nerves II through XII intact. Motor and sensory grossly within normal limits. Five out of 5 muscle strength in all muscle groups. Normal speech. Medications and IVs Current Medications Medications (Trade) Dose Ordered Sig/Sherry Route Start Time Stop Time Status Last Admin (Ativan) 0.5 mg Q12H PRN PO 08/21/16 09:45 (Ativan Inj) 0.5 mg Q12H PRN IM 08/21/16 09:45 (Benadryl) 50 mg Q6H PRN PO 08/21/16 09:45 08/22/16 21:01 (Benadryl Inj) 50 mg Q6H PRN IM 08/21/16 09:45 (Benadryl) 50 mg HS PRN PO 08/21/16 09:45 08/21/16 21:45 (Tylenol) 650 mg Q4H PRN PO 08/21/16 09:45 (Milk Of Magnesia Liq) 30 ml DAILY PRN PO 08/21/16 09:45 (Mag-Al Plus Susp Liq) 30 ml Q6H PRN PO 08/21/16 09:45 (Habitrol 21 Mg Patch.24 Hr) 1 patch DAILY T-DERMAL 08/22/16 09:00 08/24/16 09:00 Miscellaneous Information 1 DAILY T-DERMAL 08/23/16 09:00 08/24/16 09:00 (Ecotrin Ec) 81 mg DAILY PO 08/22/16 09:00 08/24/16 09:00 (Buspar) 10 mg TID PO 08/21/16 13:00 08/24/16 12:37 (Sinemet 10-100 Mg) 1 tab Q8HR PO 08/21/16 14:00 08/24/16 14:00 (Plavix) 75 mg DAILY PO 08/22/16 09:00 08/24/16 08:59 (Depakote Er) 500 mg DAILY PO 08/22/16 09:00 08/24/16 09:00 (Neurontin) 300 mg TID PO 08/21/16 13:00 08/24/16 12:37 (Glucotrol) 10 mg BIDAC PO 08/21/16 16:00 08/24/16 07:00 (Robaxin) 500 mg HS PO 08/21/16 21:00 08/23/16 20:53 (Pravachol) 80 mg DAILY PO 08/22/16 09:00 08/24/16 09:00 (Effexor Xr) 150 mg DAILY PO 08/21/16 11:00 4/7/17 09:00 (D50w (Vial) Inj) 25 ml UNSCH PRN IV PUSH 08/21/16 09:45 (Glucagon Inj) 1 mg UNSCH PRN OTHER 08/21/16 09:45 (Synthroid) 25 mcg DAILY@0600 PO 08/23/16 06:00 08/24/16 06:07 (SEROquel) 150 mg HS PO 08/23/16 21:00 08/23/16 20:52 (Pill Splitter) 1 ea UNSCH PRN OTHER 08/23/16 11:00 (Zithromax) 250 mg DAILY PO 08/24/16 09:00 08/28/16 08:59 08/24/16 08:59 (Deltasone) 40 mg DAILY PO 08/23/16 11:45 08/26/16 11:44 08/24/16 09:00 A/P Assessment and Plan This is a 66-year-old male who was brought in under a police Lemus act due to homicidal ideations. He has had thoughts of hurting other people. Consultation was requested to evaluate and manage multiple medical conditions which are COPD, chronic respiratory failure on home oxygen, coronary artery disease status post stent and CABG, hyperlipidemia, hypertension, diabetes mellitus, TIA, hypothyroidism and PD. AECOPD with chronic respiratory failure. Patient with active wheezing and increased cough, improved. Continue nebulization and continue oxygen. Continue with Z-Bean and oral steroid boost. Coronary artery disease status post stent and CABG. Patient denies chest pain. Continue aspirin, Plavix, statin. No beta hermila for now secondary to COPD. Now with increased cough. Chest x-ray reveals cardiomegaly and findings of congestive heart failure but BNP 12. Continue to monitor closely and will consider echocardiogram. Hypertension. Stable continue to monitor. Lisinopril currently on hold by attending. BP 116/59. Diabetes mellitus. Continue glipizide and monitor fingerstick with sliding scale coverage. A1c 7.4. Blood sugars 189 today but patient wasn't given his Glipizide dose last night. Continue to monitor closely while on oral steroid. Hyperlipidemia. Continue statin follow-up lipid profile reveals good control. TIA. Stable continue antiplatelets Hypothyroidism continue Synthroid and follow-up TSH 2.010. PD. Continue Sinemet. DVT prophylaxis patient ambulatory Discussed with patient and nursing staff Written by Milly Wilburn PA-C acting as scribe for Dr. Vincent on 08/24/16 at 12:34. All or portions of this note were transcribed by scribe Milly Wilburn PA-C. I, Dr. Kenneth Vincent personally performed the history, physical exam, and medical decision making; and confirmed the accuracy of the information in the transcribed note. Authenticated by Dr. Kenneth Vincent on 08/24/16 at 16:50. Milly Wilburn Aug 24, 2016 14:17 Kenneth Vincent MD Aug 24, 2016 16:50
[2016-08-24 16:15] VITALS: O2SAT 99
--- NOTE | 2016-08-24 17:21 | HHI.PYPN ---
Subjective Remarks Patient seen in day room with nurse Tevin, patient somewhat feisty and irritable somewhat focused on his relationship with his family. Compliant medications. For now continue treatment Review of Systems Except as stated in HPI: all other systems reviewed are Neg Objective Alert: Yes [place]: Person, Place, Situation Mood: Other (irritable) Affect: Restricted (dysphoric) Memory Intact: Comment (intact on clinical exam) Hallucinations: Other (denies AVH) Delusions: No Delusion Type: Other (no delusions elicited) Suicidal: Ideation (no SI) Homicidal: Ideation (no HI) Insight/Judgment Poor Vitals/IOs Vital Signs Date Time Temp Pulse Resp B/P Pulse Ox O2 Delivery O2 Flow Rate FiO2 08/24/16 16:15 99 Nasal Cannula 2.00 08/24/16 06:19 98.5 97 16 116/59 Intake and Output 08/23/16 08/23/16 08/24/16 08:00 16:00 00:00 Intake Total 0 ml Balance 0 ml Assessment & Plan Problem List: (1) Bipolar disorder ICD Code: F31.9 (2) Cannabis abuse ICD Code: F12.10 Assessment & Plan Estimated LOS: days patient continues somewhat irritable angry much of focused on his family. Compliant medications. For now continue treatment Justification for Cont. Inpt. At this time patient will decompensate if placed in a lower level of care Discharge Planning To be determined Request HC Surrog/Guard Advoc?: No Problem Qualifiers (1) Bipolar disorder: Qualified Code: F31.4 - Bipolar disorder, current episode depressed, severe, without psychotic features Miguel Bond MD Aug 24, 2016 17:21
[2016-08-24 19:06] VITALS: BP 107/56; PULSE 95; RESP 16; TEMP 98.4; O2SAT 97
[2016-08-24] MEDS: METHOCARBAMOL 500 MG TAB PO SCH (21:00)
[2016-08-24] MEDS: QUEtiapine FUMARATE 100 MG TAB PO SCH (21:01)
[2016-08-25] MEDS: LEVOTHYROXINE SODIUM 25 MCG TAB PO SCH (06:00)
[2016-08-25] MEDS: CARBIDOPA/LEVODOPA 10 MG/100 MG TAB PO SCH ×3 (06:00→20:24)
[2016-08-25 06:02] VITALS: BP 112/58; PULSE 76; RESP 18; TEMP 98.8; O2SAT 97
[2016-08-25] MEDS: INSULIN ASPART SUPPLEMENTAL SCALE SQ SCH ×4 (07:00→20:36)
[2016-08-25 09:00] VITALS: O2SAT 99
[2016-08-25] MEDS: NICOTINE 21 MG/24 HR PATCH T-DERMAL SCH (09:00)
[2016-08-25] MEDS: RESP: ALBUTEROL 2.5 MG/IPRATROPIUM 0.5 MG NEB (SCH) NEB ×3 (09:00→17:00)
[2016-08-25] MEDS: REMOVE OLD PATCH T-DERMAL SCH (09:00)
[2016-08-25] MEDS: glipiZIDE 10 MG TAB PO SCH ×2 (09:56→16:52)
[2016-08-25] MEDS: busPIRone HCL 10 MG TAB PO SCH ×3 (09:56→16:52)
[2016-08-25] MEDS: CLOPIDOGREL 75 MG TAB PO SCH (09:56)
[2016-08-25] MEDS: AZITHROMYCIN 250 MG TAB PO SCH (09:56)
[2016-08-25] MEDS: predniSONE 20 MG TAB PO SCH (09:56)
[2016-08-25] MEDS: ASPIRIN EC 81 MG TABEC PO SCH (09:57)
[2016-08-25] MEDS: GABAPENTIN 300 MG CAP PO SCH ×3 (09:57→16:52)
[2016-08-25] MEDS: VENLAFAXINE HCL XR 75 MG CAP PO SCH (09:57)
[2016-08-25] MEDS: DIVALPROEX SODIUM E.R. 500 MG TAB PO SCH (09:57)
[2016-08-25] MEDS: PRAVASTATIN SOD 80 MG TAB PO SCH (09:57)
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
[2016-08-25 18:00] VITALS: BP 119/53; PULSE 97; TEMP 98.3; O2SAT 96
[2016-08-25 19:30] VITALS: O2SAT 98
[2016-08-25] MEDS: METHOCARBAMOL 500 MG TAB PO SCH (20:24)
[2016-08-25] MEDS: QUEtiapine FUMARATE 100 MG TAB PO SCH (20:25)
[2016-08-26] MEDS: CARBIDOPA/LEVODOPA 10 MG/100 MG TAB PO SCH ×3 (05:56→21:13)
[2016-08-26] MEDS: LEVOTHYROXINE SODIUM 25 MCG TAB PO SCH (05:56)
[2016-08-26 06:15] VITALS: BP 118/67; PULSE 92; RESP 16; TEMP 97.3; O2SAT 95
[2016-08-26] MEDS: glipiZIDE 10 MG TAB PO SCH ×2 (07:00→16:54)
[2016-08-26] MEDS: INSULIN ASPART SUPPLEMENTAL SCALE SQ SCH ×4 (07:00→21:15)
[2016-08-26] MEDS: REMOVE OLD PATCH T-DERMAL SCH (09:00)
[2016-08-26] MEDS: predniSONE 20 MG TAB PO SCH (09:37)
[2016-08-26] MEDS: DIVALPROEX SODIUM E.R. 500 MG TAB PO SCH (09:37)
[2016-08-26] MEDS: busPIRone HCL 10 MG TAB PO SCH ×3 (09:38→18:00)
[2016-08-26] MEDS: PRAVASTATIN SOD 80 MG TAB PO SCH (09:38)
[2016-08-26] MEDS: GABAPENTIN 300 MG CAP PO SCH ×3 (09:38→18:48)
[2016-08-26] MEDS: CLOPIDOGREL 75 MG TAB PO SCH (09:38)
[2016-08-26] MEDS: AZITHROMYCIN 250 MG TAB PO SCH (09:38)
[2016-08-26] MEDS: ASPIRIN EC 81 MG TABEC PO SCH (09:38)
[2016-08-26] MEDS: VENLAFAXINE HCL XR 75 MG CAP PO SCH (09:38)
[2016-08-26] MEDS: NICOTINE 21 MG/24 HR PATCH T-DERMAL SCH (09:40)
--- NOTE | 2016-08-26 14:01 | HHI.PYPN ---
Subjective Remarks Patient was seen and case discussed with nursing. Patient is seclusive to room. When asked about homicidal ideation towards his family he says "they come and go."mood is sometimes I'm good sometimes and not." Continues to have mild perioral movements. Says he has not spoken to his family or had any visitors. Compliant with medications Objective Alert: Yes [place]: Person, Place, Date Mood: Calm Affect: Restricted Memory Intact: Comment (intact on clinical exam) Hallucinations: Other (denies AVH) Delusions: No Delusion Type: Other (no delusions elicited) Suicidal: Ideation (no SI) Homicidal: Ideation (comes and goes) Insight/Judgment Poor Vitals/IOs Vital Signs Date Time Temp Pulse Resp B/P Pulse Ox O2 Delivery O2 Flow Rate FiO2 08/26/16 06:15 97.3 92 16 118/67 95 08/25/16 19:30 Nasal Cannula 2.00 Intake and Output 08/25/16 08/25/16 08/26/16 08:00 16:00 00:00 Intake Total 1440 ml 1320 ml Balance 1440 ml 1320 ml Assessment & Plan Problem List: (1) Bipolar disorder ICD Code: F31.9 (2) Cannabis abuse ICD Code: F12.10 Assessment & Plan Continue current treatment plan Justification for Cont. Inpt. Patient will decompensate in a less restrictive setting Request HC Surrog/Guard Advoc?: No Problem Qualifiers (1) Bipolar disorder: Qualified Code: F31.4 - Bipolar disorder, current episode depressed, severe, without psychotic features Alessandro Josue DO Aug 26, 2016 14:00
[2016-08-26 20:28] VITALS: BP 113/57; PULSE 87; RESP 17; TEMP 98.7; O2SAT 98
[2016-08-26] MEDS: METHOCARBAMOL 500 MG TAB PO SCH (21:12)
[2016-08-26] MEDS: QUEtiapine FUMARATE 100 MG TAB PO SCH (21:13)
[2016-08-26 22:13] VITALS: O2SAT 98
[2016-08-26] MEDS: RESP: ALBUTEROL 2.5 MG/IPRATROPIUM 0.5 MG NEB (SCH) NEB (22:13)
[2016-08-27] MEDS: CARBIDOPA/LEVODOPA 10 MG/100 MG TAB PO SCH ×3 (06:21→20:53)
[2016-08-27] MEDS: LEVOTHYROXINE SODIUM 25 MCG TAB PO SCH (06:22)
[2016-08-27] MEDS: INSULIN ASPART SUPPLEMENTAL SCALE SQ SCH ×4 (06:22→20:42)
[2016-08-27] MEDS: glipiZIDE 10 MG TAB PO SCH ×2 (06:24→17:17)
[2016-08-27 06:25] VITALS: BP 105/60; PULSE 83; RESP 16; TEMP 97.4; O2SAT 96
[2016-08-27] MEDS: PRAVASTATIN SOD 80 MG TAB PO SCH (08:42)
[2016-08-27] MEDS: ASPIRIN EC 81 MG TABEC PO SCH (08:42)
[2016-08-27] MEDS: GABAPENTIN 300 MG CAP PO SCH ×3 (08:42→17:17)
[2016-08-27] MEDS: busPIRone HCL 10 MG TAB PO SCH ×3 (08:42→17:17)
[2016-08-27] MEDS: CLOPIDOGREL 75 MG TAB PO SCH (08:43)
[2016-08-27] MEDS: DIVALPROEX SODIUM E.R. 500 MG TAB PO SCH (08:43)
[2016-08-27] MEDS: AZITHROMYCIN 250 MG TAB PO SCH (08:43)
[2016-08-27] MEDS: VENLAFAXINE HCL XR 75 MG CAP PO SCH (08:43)
[2016-08-27] MEDS: REMOVE OLD PATCH T-DERMAL SCH (08:54)
[2016-08-27] MEDS: NICOTINE 21 MG/24 HR PATCH T-DERMAL SCH (08:54)
--- NOTE | 2016-08-27 09:16 | HHI.PYPN ---
Subjective Remarks Patient seen and examined. Chart reviewed. Case discussed with nursing staff who reports patient was medication compliant and slept fairly well overnight. On my examination today, I note that the patient has a significant tongue protrusion. Dentition is poor, but the patient himself has noted that this is somewhat worse since titrating Seroquel. Reports that he has had this problem in the past from other antipsychotics. If felt somewhat irritable yesterday, less so today. Sleep was subjectively poor overnight. Denies side effects from medications otherwise. We discussed medication adjustments to limit abnormal movements and improve irritability without use of antipsychotics as detailed below and the patient is in agreement with the plan. Review of Systems Except as stated in HPI: all other systems reviewed are Neg Objective Alert: Yes [place]: Person, Place, Date Mood: Calm (some irritability) Affect: Blunted Memory Intact: Comment (remains intact) Hallucinations: Other (no AVH) Delusions: No Delusion Type: Other (no delusional material elicited) Suicidal: Ideation (no SI) Homicidal: Ideation (no homicidal ideation) Insight/Judgment Fair Remarks Patient has tongue protrusion but no other motoric abnormalities. No dyskinesias or dystonias. Steady gait and station. Thought process linear. Speech within normal limits for rate, tone and volume. Labs Labs reviewed. Vitals/IOs Vital Signs Date Time Temp Pulse Resp B/P Pulse Ox O2 Delivery O2 Flow Rate FiO2 08/27/16 06:25 97.4 83 16 105/60 96 08/26/16 22:13 Nasal Cannula 2.00 Intake and Output 08/26/16 08/26/16 08/27/16 08:00 16:00 00:00 Intake Total 0 ml 720 ml Balance 0 ml 720 ml Assessment & Plan Problem List: (1) Bipolar disorder ICD Code: F31.9 (2) Cannabis abuse ICD Code: F12.10 Assessment & Plan Discontinue Seroquel in light of probable dyskinesias. Instead, titrate Depakote to 1 g daily for mood stabilization and irritability. Continue BuSpar and Effexor as ordered. Add trazodone 50 mg as needed for sleep, may repeat 1. Check a Depakote level later this week. Continue to monitor on the inpatient unit, continue other medications and care as ordered. Justification for Cont. Inpt. Complicating condition, namely the probable lingual dyskinesias. Medication adjustments in process. High risk for decompensation pending psychiatric stabilization. Discharge Planning Pending psychiatric stabilization. In light of needed medication adjustments, I suspect that the patient will be ready for discharge by the end of the week. Request HC Surrog/Guard Advoc?: No Problem Qualifiers (1) Bipolar disorder: Qualified Code: F31.4 - Bipolar disorder, current episode depressed, severe, without psychotic features Marck Gonzalez MD Aug 27, 2016 09:16
[2016-08-27 09:50] VITALS: O2SAT 96
[2016-08-27] MEDS: RESP: ALBUTEROL 2.5 MG/IPRATROPIUM 0.5 MG NEB (SCH) NEB ×2 (12:40→20:23)
--- NOTE | 2016-08-27 15:02 | HHI.PR ---
Subjective Remarks Follow-up on patient with COPD with acute exacerbation, hypertension, diabetes and CAD status post stent and CABG. Patient seen and examined today. Patient reports breathing is much improved and has been on O2 10/12. He still has a cough but no sputum production despite duonebs. He Denies and SOB, chest pain, fever or chills. Objective Vitals Vital Signs Date Time Temp Pulse Resp B/P Pulse Ox O2 Delivery O2 Flow Rate FiO2 08/27/16 09:50 96 Nasal Cannula 2.00 08/27/16 06:25 97.4 83 16 105/60 96 08/26/16 22:13 98 Nasal Cannula 2.00 08/26/16 20:28 98.7 87 17 113/57 98 I/O 08/26/16 08/26/16 08/26/16 08/27/16 08/27/16 08/27/16 07:00 15:00 23:00 07:00 15:00 23:00 Intake Total 0 ml 720 ml Balance 0 ml 720 ml Intake Oral 0 ml 720 ml # Voids 1 2 Imaging Last Impressions Chest X-Ray 08/21/16 0000 Signed Impressions: Service Date/Time: Sunday, August 21, 2016 16:56 - CONCLUSION: 1. Cardiomegaly and findings of congestive heart failure. Marck Bro MD Objective Remarks GENERAL: This is a well-nourished, well-developed patient, in no apparent distress. Awake and interacting in the activity room. SKIN: No rashes, ecchymoses or lesions. Cool and dry. HEAD: Atraumatic. Normocephalic. EYES: EOMI. NECK: Trachea midline. No JVD or lymphadenopathy. Supple CARDIOVASCULAR: Regular rate and rhythm without murmurs, gallops, or rubs. RESPIRATORY: Loud bronchi sounds noted, no wheezing or rales. On continuous O2 NC. GASTROINTESTINAL: Abdomen soft, non-tender, nondistended. No guarding. MUSCULOSKELETAL: Extremities without clubbing, cyanosis, or edema. No joint tenderness, effusion, or edema noted. No calf tenderness. NEUROLOGICAL: Awake and alert. Motor and sensory grossly within normal limits. Five out of 5 muscle strength in all muscle groups. Normal speech. Medications and IVs Current Medications Medications (Trade) Dose Ordered Sig/Sherry Route Start Time Stop Time Status Last Admin (Ativan) 0.5 mg Q12H PRN PO 08/21/16 09:45 (Ativan Inj) 0.5 mg Q12H PRN IM 08/21/16 09:45 (Benadryl) 50 mg Q6H PRN PO 08/21/16 09:45 08/22/16 21:01 (Benadryl Inj) 50 mg Q6H PRN IM 08/21/16 09:45 (Benadryl) 50 mg HS PRN PO 08/21/16 09:45 08/21/16 21:45 (Tylenol) 650 mg Q4H PRN PO 08/21/16 09:45 (Milk Of Magnesia Liq) 30 ml DAILY PRN PO 08/21/16 09:45 (Mag-Al Plus Susp Liq) 30 ml Q6H PRN PO 08/21/16 09:45 (Habitrol 21 Mg Patch.24 Hr) 1 patch DAILY T-DERMAL 08/22/16 09:00 08/27/16 08:54 Miscellaneous Information 1 DAILY T-DERMAL 08/23/16 09:00 08/27/16 08:54 (Ecotrin Ec) 81 mg DAILY PO 08/22/16 09:00 08/27/16 08:42 (Buspar) 10 mg TID PO 08/21/16 13:00 08/27/16 12:52 (Sinemet 10-100 Mg) 1 tab Q8HR PO 08/21/16 14:00 08/27/16 06:21 (Plavix) 75 mg DAILY PO 08/22/16 09:00 08/27/16 08:43 (Neurontin) 300 mg TID PO 08/21/16 13:00 08/27/16 12:52 (Glucotrol) 10 mg BIDAC PO 08/21/16 16:00 08/27/16 06:24 (Robaxin) 500 mg HS PO 08/21/16 21:00 08/26/16 21:12 (Pravachol) 80 mg DAILY PO 08/22/16 09:00 08/27/16 08:42 (Effexor Xr) 150 mg DAILY PO 08/21/16 11:00 08/27/16 08:43 (D50w (Vial) Inj) 25 ml UNSCH PRN IV PUSH 08/21/16 09:45 (Glucagon Inj) 1 mg UNSCH PRN OTHER 08/21/16 09:45 (Synthroid) 25 mcg DAILY@0600 PO 08/23/16 06:00 08/27/16 06:22 (Pill Splitter) 1 ea UNSCH PRN OTHER 08/23/16 11:00 (Zithromax) 250 mg DAILY PO 08/24/16 09:00 08/28/16 08:59 08/27/16 08:43 (Depakote Er) 1,000 mg DAILY PO 08/28/16 09:00 (Desyrel) 50 mg HS PO 08/27/16 21:00 Urinary Catheter: No Vascular Central Line Catheter: No A/P Problem List: (1) Schizoaffective disorder ICD Code: F25.9 Status: Chronic (2) COPD exacerbation ICD Code: J44.1 Status: Acute (3) HLD (hyperlipidemia) ICD Code: E78.5 Status: Chronic (4) HTN (hypertension) ICD Code: I10 Status: Chronic (5) Hypothyroidism ICD Code: E03.9 Status: Chronic (6) CAD (coronary artery disease) ICD Code: I25.10 Status: Chronic Assessment and Plan This is a 66-year-old male who was brought in under a police [place] act due to homicidal ideations. He has had thoughts of hurting other people. We are following for multiple medical conditions such as CAD, HLD, HTN, DM and hypothyroidism, and COPD exacerbation. Schizoaffective disorder -Managed by psychiatry COPD with acute exacerbation, improving Images: Chest x-ray on 08/21/16 reveals cardiomegaly and findings of congestive heart failure but BNP 12. -Cont duo nebs and add Mucomyst BID -Cont Azithromyacin and prednisone daily -O2 2L 10/12, Will need home continuation of home O2 as well . CAD, status post stent and CABG, chronic -Cont home aspirin, Plavix, statin. -No beta hermila for now secondary to COPD. -Continue to monitor closely and will consider echocardiogram. Hypertension, Chronic -Stable continue to monitor. BP 105/60 Diabetes mellitus, chronic Labs: A1c 7.4. -Continue glipizide -Accu-checks with sliding scale coverage. -Monitor closely due to steroids Hyperlipidemia, chronic -Continue statin follow-up lipid profile reveals good control. Hypothyroidism, Chrionic -Cont home Synthroid and follow-up TSH 2.010. DVT prophylaxis: Encourage ambulation Discussed with patient and nursing staff Written by PAPA Barnhart acting as scribe for Dr. Grimaldo on 08/27/16 at 11: 15. All or portions of this note were transcribed by [employer]. I, Dr. Jenifer Grimaldo personally performed the history, physical exam, and medical decision making; and confirmed the accuracy of the information in the transcribed note. Authenticated by Dr. Jenifer Grimaldo on 08/27/16 at 11:15. Problem Qualifiers (1) Schizoaffective disorder: Qualified Code: F25.0 - Schizoaffective disorder, bipolar type Shani Davies Aug 27, 2016 15:02 Jenifer Grimaldo MD Aug 27, 2016 15:36
[2016-08-27 19:00] VITALS: BP 115/54; PULSE 90; RESP 18; TEMP 98.1
[2016-08-27 20:23] VITALS: O2SAT 96
[2016-08-27] MEDS: RESP: ACETYLCYSTEINE 10% 30 ML NEB NEB SCH (20:24)
[2016-08-27] MEDS: guaiFENesin E.R. 600 MG TAB PO SCH (20:41)
[2016-08-27] MEDS: METHOCARBAMOL 500 MG TAB PO SCH (20:42)
[2016-08-27] MEDS ORDERED: traZODone HCL 50 MG TAB PO SCH (21:00)
[2016-08-27] MEDS ORDERED: traZODone HCL 100 MG TAB PO SCH (21:00)
[2016-08-28 05:57] VITALS: BP 115/65; PULSE 77; RESP 18; TEMP 96.9; O2SAT 99
[2016-08-28] MEDS: CARBIDOPA/LEVODOPA 10 MG/100 MG TAB PO SCH ×3 (06:26→21:27)
[2016-08-28] MEDS: LEVOTHYROXINE SODIUM 25 MCG TAB PO SCH (06:26)
[2016-08-28] MEDS: glipiZIDE 10 MG TAB PO SCH ×2 (06:27→17:02)
[2016-08-28] MEDS: INSULIN ASPART SUPPLEMENTAL SCALE SQ SCH ×4 (06:29→21:00)
[2016-08-28] MEDS: guaiFENesin E.R. 600 MG TAB PO SCH ×2 (09:00→21:27)
[2016-08-28] MEDS: NICOTINE 21 MG/24 HR PATCH T-DERMAL SCH (09:00)
[2016-08-28] MEDS: ASPIRIN EC 81 MG TABEC PO SCH (09:00)
[2016-08-28] MEDS: VENLAFAXINE HCL XR 75 MG CAP PO SCH (09:00)
[2016-08-28] MEDS: PRAVASTATIN SOD 80 MG TAB PO SCH (09:00)
[2016-08-28] MEDS: DIVALPROEX SODIUM E.R. 500 MG TAB PO SCH (09:00)
[2016-08-28] MEDS: GABAPENTIN 300 MG CAP PO SCH ×3 (09:00→17:03)
[2016-08-28] MEDS: REMOVE OLD PATCH T-DERMAL SCH (09:00)
[2016-08-28] MEDS: CLOPIDOGREL 75 MG TAB PO SCH (09:00)
[2016-08-28] MEDS: busPIRone HCL 10 MG TAB PO SCH ×3 (09:00→17:03)
[2016-08-28] MEDS: RESP: ALBUTEROL 2.5 MG/IPRATROPIUM 0.5 MG NEB (SCH) NEB ×2 (10:39→20:11)
[2016-08-28] MEDS: RESP: ACETYLCYSTEINE 10% 30 ML NEB NEB SCH ×2 (10:40→20:11)
[2016-08-28 10:45] VITALS: O2SAT 99
--- NOTE | 2016-08-28 12:20 | HHI.PYPN ---
Subjective Remarks Patient seen and examined. Chart reviewed. Case discussed in treatment team with nurse, counselor and occupational therapist. Per nursing staff, patient has been no behavioral problem. He was reportedly saying that he had had no contact with his sons. Counselor informs me that she has been in contact with patient son, and he reportedly was not aware that the patient was in the hospital. On my examination today, patient continues to complain of irritability. Sleep was reportedly poor and the patient would like to titrate his trazodone. No SI or HI voiced at this time. Denies side effects from medications. Review of Systems Except as stated in HPI: all other systems reviewed are Neg Objective Alert: Yes [place]: Person, Place, Date Mood: Other (presently calm but reports some irritability) Affect: Blunted Memory Intact: Comment (intact) Hallucinations: Other (no AVH) Delusions: No Delusion Type: Other (no delusions) Suicidal: Ideation (no SI) Homicidal: Ideation (no HI) Insight/Judgment Fair Remarks Tongue darting movements more or less unchanged today. Thought process linear. Grooming and hygiene fair. Labs Labs reviewed. Vitals/IOs Vital Signs Date Time Temp Pulse Resp B/P Pulse Ox O2 Delivery O2 Flow Rate FiO2 08/28/16 10:45 99 Nasal Cannula 2.00 08/28/16 05:57 96.9 77 18 115/65 08/27/16 20:23 21 Intake and Output 08/27/16 08/27/16 08/28/16 08:00 16:00 00:00 Intake Total 1440 ml Balance 1440 ml Assessment & Plan Problem List: (1) Bipolar disorder ICD Code: F31.9 (2) Cannabis abuse ICD Code: F12.10 Assessment & Plan Titrate trazodone to 100 mg at bedtime. Continue Depakote as ordered with a Depakote level ordered for later this week. Appreciate hospitalist input. Continue to monitor on the inpatient unit. Continue other medications and care as ordered. Justification for Cont. Inpt. Medication changes in process. Risk for decompensation pending psychiatric stabilization. Discharge Planning Pending psychiatric stabilization. I anticipate the patient will be stable for discharge by the end of the week barring some clinical worsening. Request HC Surrog/Guard Advoc?: No Problem Qualifiers (1) Bipolar disorder: Qualified Code: F31.4 - Bipolar disorder, current episode depressed, severe, without psychotic features Marck Gonzalez MD Aug 28, 2016 12:19
[2016-08-28 19:00] VITALS: BP 112/59; PULSE 99; RESP 17; TEMP 97.6
[2016-08-28 20:32] VITALS: O2SAT 98
[2016-08-28] MEDS ORDERED: traZODone HCL 50 MG TAB PO SCH (21:00)
[2016-08-28] MEDS: diphenhydrAMINE HCL 50 MG CAP PO PRN (21:27)
[2016-08-28] MEDS: METHOCARBAMOL 500 MG TAB PO SCH (21:27)
[2016-08-29 05:22] VITALS: BP 109/54; PULSE 90; RESP 20; TEMP 97.2
[2016-08-29] MEDS: LEVOTHYROXINE SODIUM 25 MCG TAB PO SCH (06:00)
[2016-08-29] MEDS: CARBIDOPA/LEVODOPA 10 MG/100 MG TAB PO SCH ×3 (06:00→21:27)
[2016-08-29] MEDS: glipiZIDE 10 MG TAB PO SCH ×2 (06:24→16:00)
[2016-08-29] MEDS: INSULIN ASPART SUPPLEMENTAL SCALE SQ SCH ×4 (06:25→21:00)
[2016-08-29 08:54] VITALS: O2SAT 96
[2016-08-29] MEDS: RESP: ACETYLCYSTEINE 10% 30 ML NEB NEB SCH ×2 (08:54→20:54)
[2016-08-29] MEDS: RESP: ALBUTEROL 2.5 MG/IPRATROPIUM 0.5 MG NEB (SCH) NEB ×2 (08:54→20:54)
[2016-08-29] MEDS: ASPIRIN EC 81 MG TABEC PO SCH (09:00)
[2016-08-29] MEDS: REMOVE OLD PATCH T-DERMAL SCH (09:00)
[2016-08-29] MEDS: GABAPENTIN 300 MG CAP PO SCH ×3 (09:36→18:00)
[2016-08-29] MEDS: VENLAFAXINE HCL XR 75 MG CAP PO SCH (09:36)
[2016-08-29] MEDS: NICOTINE 21 MG/24 HR PATCH T-DERMAL SCH (09:36)
[2016-08-29] MEDS: busPIRone HCL 10 MG TAB PO SCH ×3 (09:36→18:00)
[2016-08-29] MEDS: DIVALPROEX SODIUM E.R. 500 MG TAB PO SCH (09:36)
[2016-08-29] MEDS: guaiFENesin E.R. 600 MG TAB PO SCH ×2 (09:36→21:26)
[2016-08-29] MEDS: CLOPIDOGREL 75 MG TAB PO SCH (09:36)
[2016-08-29] MEDS: PRAVASTATIN SOD 80 MG TAB PO SCH (09:36)
--- NOTE | 2016-08-29 11:19 | HHI.PR ---
Subjective Remarks Follow-up on patient with COPD with acute exacerbation, hypertension, diabetes and CAD status post stent and CABG. Patient seen and examined today. Patient reports feeling good and wanting to go home. He Denies and SOB, chest pain, fever or chills. Objective Vitals Vital Signs Date Time Temp Pulse Resp B/P Pulse Ox O2 Delivery O2 Flow Rate FiO2 08/29/16 08:54 96 2.00 08/29/16 05:22 97.2 90 20 109/54 08/28/16 20:32 98 Nasal Cannula 2.00 08/28/16 19:00 97.6 99 17 112/59 I/O 08/28/16 08/28/16 08/28/16 08/29/16 08/29/16 08/29/16 07:00 15:00 23:00 07:00 15:00 23:00 Intake Total 240 ml 480 ml Balance 240 ml 480 ml Intake Oral 240 ml Oral Supplement 480 ml # Voids 1 13 2 Objective Remarks GENERAL: This is a well-nourished, well-developed patient, in no apparent distress. Awake and interacting in the activity room. SKIN: No rashes, ecchymoses or lesions. Cool and dry. HEAD: Atraumatic. Normocephalic. EYES: EOMI. NECK: Trachea midline. No JVD or lymphadenopathy. Supple CARDIOVASCULAR: Regular rate and rhythm without murmurs, gallops, or rubs. RESPIRATORY: Loud bronchi sounds noted, no wheezing or rales. On continuous O2 NC. GASTROINTESTINAL: Abdomen soft, non-tender, nondistended. No guarding. MUSCULOSKELETAL: Extremities without clubbing, cyanosis, or edema. No joint tenderness, effusion, or edema noted. No calf tenderness. NEUROLOGICAL: Awake and alert. Motor and sensory grossly within normal limits. Five out of 5 muscle strength in all muscle groups. Normal speech. Medications and IVs Current Medications Medications (Trade) Dose Ordered Sig/Sherry Route Start Time Stop Time Status Last Admin (Ativan) 0.5 mg Q12H PRN PO 08/21/16 09:45 08/28/16 22:17 (Ativan Inj) 0.5 mg Q12H PRN IM 08/21/16 09:45 (Benadryl) 50 mg Q6H PRN PO 08/21/16 09:45 08/28/16 21:27 (Benadryl Inj) 50 mg Q6H PRN IM 08/21/16 09:45 (Benadryl) 50 mg HS PRN PO 08/21/16 09:45 08/21/16 21:45 (Tylenol) 650 mg Q4H PRN PO 08/21/16 09:45 (Milk Of Magnesia Liq) 30 ml DAILY PRN PO 08/21/16 09:45 (Mag-Al Plus Susp Liq) 30 ml Q6H PRN PO 08/21/16 09:45 (Habitrol 21 Mg Patch.24 Hr) 1 patch DAILY T-DERMAL 08/22/16 09:00 08/29/16 09:36 Miscellaneous Information 1 DAILY T-DERMAL 08/23/16 09:00 08/29/16 09:00 (Ecotrin Ec) 81 mg DAILY PO 08/22/16 09:00 08/29/16 09:00 (Buspar) 10 mg TID PO 08/21/16 13:00 08/29/16 09:36 (Sinemet 10-100 Mg) 1 tab Q8HR PO 08/21/16 14:00 08/29/16 06:00 (Plavix) 75 mg DAILY PO 08/22/16 09:00 08/29/16 09:36 (Neurontin) 300 mg TID PO 08/21/16 13:00 08/29/16 09:36 (Glucotrol) 10 mg BIDAC PO 08/21/16 16:00 08/29/16 06:24 (Robaxin) 500 mg HS PO 08/21/16 21:00 08/28/16 21:27 (Pravachol) 80 mg DAILY PO 08/22/16 09:00 08/29/16 09:36 (Effexor Xr) 150 mg DAILY PO 08/21/16 11:00 08/29/16 09:36 (D50w (Vial) Inj) 25 ml UNSCH PRN IV PUSH 08/21/16 09:45 (Glucagon Inj) 1 mg UNSCH PRN OTHER 08/21/16 09:45 (Synthroid) 25 mcg DAILY@0600 PO 08/23/16 06:00 08/29/16 06:00 (Pill Splitter) 1 ea UNSCH PRN OTHER 08/23/16 11:00 (Depakote Er) 1,000 mg DAILY PO 08/28/16 09:00 08/29/16 09:36 (Mucinex Er) 600 mg BID PO 08/27/16 21:00 08/29/16 09:36 (Desyrel) 100 mg HS PO 08/28/16 21:00 08/28/16 21:27 Urinary Catheter: No Vascular Central Line Catheter: No A/P Problem List: (1) Schizoaffective disorder ICD Code: F25.9 Status: Chronic (2) COPD exacerbation ICD Code: J44.1 Status: Acute (3) HLD (hyperlipidemia) ICD Code: E78.5 Status: Chronic (4) HTN (hypertension) ICD Code: I10 Status: Chronic (5) Hypothyroidism ICD Code: E03.9 Status: Chronic (6) CAD (coronary artery disease) ICD Code: I25.10 Status: Chronic Assessment and Plan This is a 66-year-old male who was brought in under a police [place] act due to homicidal ideations. He has had thoughts of hurting other people. We are following for multiple medical conditions such as CAD, HLD, HTN, DM and hypothyroidism, and COPD exacerbation. Schizoaffective disorder -Managed by psychiatry COPD with acute exacerbation, improving Images: Chest x-ray on 08/21/16 reveals cardiomegaly and findings of congestive heart failure but BNP 12. -Cont duo nebs and add Mucomyst BID -Azithromyacin and prednisone treatment completed -O2 2L 24/, Will need home continuation of home O2 as well CAD, status post stent and CABG, chronic -Cont home aspirin, Plavix, statin. -No beta hermila for now secondary to COPD. -Continue to monitor closely and will consider echocardiogram. Hypertension, Chronic -Stable continue to monitor. BP 109/54 Diabetes mellitus, chronic Labs: A1c 7.4. -Continue glipizide -Accu-checks with sliding scale coverage. Hyperlipidemia, chronic -Continue statin follow-up lipid profile reveals good control. Hypothyroidism, Chrionic -Cont home Synthroid and follow-up TSH 2.010. DVT prophylaxis: Encourage ambulation We will sign off today, patient is stable, please reconsult if needed. Discussed with patient, nursing staff, and Dr. Grimaldo Problem Qualifiers (1) Schizoaffective disorder: Qualified Code: F25.0 - Schizoaffective disorder, bipolar type Shani Davies Aug 29, 2016 11:19 Jenifer Grimaldo MD Aug 29, 2016 17:19
--- NOTE | 2016-08-29 11:40 | HHI.PYPN ---
Subjective Remarks Patient seen and examined. Chart reviewed. Case discussed with nursing staff who reports patient was no behavioral problem and slept overnight. On my examination today, the patient is in good spirits. He says that he has had a conversation with his son, which went very well. Irritability significantly lessened. Affect bright and euthymic. Sleep remains subjectively poor, and the patient would like to adjust his hypnotic dose upward. Denies any suicidal or homicidal ideation. Denies side effects from medications, although tongue darting remains unchanged off of antipsychotics. Patient is hopeful for discharge tomorrow. Review of Systems Except as stated in HPI: all other systems reviewed are Neg Objective Alert: Yes [place]: Person, Place, Date Mood: Calm Affect: Euthymic Memory Intact: Comment (remains intact) Hallucinations: Other (denies AVH) Delusions: No Delusion Type: Other (none elicited) Suicidal: Ideation (denies suicidal ideation) Homicidal: Ideation (denies homicidal ideation) Insight/Judgment Fair Remarks Except as above, no motor abnormalities noted. Thought process linear. Speech within normal limits for rate, tone and volume. Labs Labs reviewed. Vitals/IOs Vital Signs Date Time Temp Pulse Resp B/P Pulse Ox O2 Delivery O2 Flow Rate FiO2 08/29/16 08:54 96 2.00 08/29/16 05:22 97.2 90 20 109/54 08/28/16 20:32 Nasal Cannula 08/27/16 20:23 21 Intake and Output 08/28/16 08/28/16 08/29/16 08:00 16:00 00:00 Intake Total 240 ml 480 ml Balance 240 ml 480 ml Assessment & Plan Problem List: (1) Bipolar disorder ICD Code: F31.9 (2) Cannabis abuse ICD Code: F12.10 Assessment & Plan Patient seems much improved today. Given the rapidity of his improvement and the fact that it follows a constructive conversation with his son, I wonder if strain in this relationship was not driving a significant component of patient' s symptomatology. Titrate trazodone for sleep. Continue other psychotropics as ordered. Depakote level ordered for tomorrow morning. Continue to monitor on the inpatient unit. Continue other medications and care as ordered. Justification for Cont. Inpt. Final discharge planning. Discharge Planning Anticipate discharge tomorrow with outpatient psychiatric follow-up. Counselor to reach out to patient's son. Request HC Surrog/Guard Advoc?: No Problem Qualifiers (1) Bipolar disorder: Qualified Code: F31.4 - Bipolar disorder, current episode depressed, severe, without psychotic features Marck Gonzalez MD Aug 29, 2016 11:40
[2016-08-29 18:00] VITALS: BP 128/61; PULSE 100; RESP 17; TEMP 99.4; O2SAT 97
[2016-08-29 20:54] VITALS: O2SAT 97
[2016-08-29] MEDS ORDERED: traZODone HCL 50 MG TAB PO SCH (21:00)
[2016-08-29] MEDS: METHOCARBAMOL 500 MG TAB PO SCH (21:26)
[2016-08-30 05:56] VITALS: BP 103/51; PULSE 77; RESP 18; TEMP 98.1
[2016-08-30] MEDS: LEVOTHYROXINE SODIUM 25 MCG TAB PO SCH (06:20)
[2016-08-30] MEDS: CARBIDOPA/LEVODOPA 10 MG/100 MG TAB PO SCH (06:20)
[2016-08-30] MEDS: guaiFENesin E.R. 600 MG TAB PO SCH (08:33)
[2016-08-30] MEDS: PRAVASTATIN SOD 80 MG TAB PO SCH (08:34)
[2016-08-30] MEDS: VENLAFAXINE HCL XR 75 MG CAP PO SCH (08:34)
[2016-08-30] MEDS: GABAPENTIN 300 MG CAP PO SCH (08:34)
[2016-08-30] MEDS: busPIRone HCL 10 MG TAB PO SCH (08:34)
[2016-08-30] MEDS: CLOPIDOGREL 75 MG TAB PO SCH (08:34)
[2016-08-30] MEDS: DIVALPROEX SODIUM E.R. 500 MG TAB PO SCH (08:35)
[2016-08-30] MEDS: ASPIRIN EC 81 MG TABEC PO SCH (08:35)
[2016-08-30 08:45] VITALS: O2SAT 98
[2016-08-30] MEDS: REMOVE OLD PATCH T-DERMAL SCH (09:00)
[2016-08-30] MEDS: NICOTINE 21 MG/24 HR PATCH T-DERMAL SCH (09:00)
[2016-08-30] MEDS ORDERED: TRAZ50TA12 PO (10:20)
[2016-08-30] MEDS ORDERED: DEPA500T3 PO (10:20)
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
[2016-08-30] MEDS: INSULIN ASPART SUPPLEMENTAL SCALE SQ SCH (11:00)
== END 2016-08-30 12:30 | disposition home or self-care (01) | DRG 885 ==
LOC: NEPA 01:24 → H250 09:36
PROVIDERS: ADMIT Psychiatry & Neurology Psychiatry; ATTEND Psychiatry & Neurology Psychiatry
DX: F31.4 Bipolar disorder, current episode depressed, severe, without psychotic features (principal); J96.10 Chronic respiratory failure, unspecified whether with hypoxia or hypercapnia; G20 Parkinson's disease; I50.9 Heart failure, unspecified; I11.0 Hypertensive heart disease with heart failure; Z99.81 Dependence on supplemental oxygen; J44.1 Chronic obstructive pulmonary disease with (acute) exacerbation; E11.9 Type 2 diabetes mellitus without complications; F12.10 Cannabis abuse, uncomplicated; I25.10 Atherosclerotic heart disease of native coronary artery without angina pectoris; F41.9 Anxiety disorder, unspecified; F25.9 Schizoaffective disorder, unspecified; Z95.1 Presence of aortocoronary bypass graft; Z95.5 Presence of coronary angioplasty implant and graft; E78.5 Hyperlipidemia, unspecified; E03.9 Hypothyroidism, unspecified; Z86.73 Personal history of transient ischemic attack (TIA), and cerebral infarction without residual deficits; Z79.84 Long term (current) use of oral hypoglycemic drugs
CPT/HCPCS: 71010; 80048; 80053; 80061; 80164; 80307; 81001; 82140; 82948; 83036; 83880; 84439; 84443; 85025; 94640; 94664; J1815; J7512; J7608; Q0163

== ENCOUNTER 2017-10-15 22:07 | Inpatient (IN) | payer MEDICARE, OTHER ==
[~2017-10-15 22:07] MED LIST changes: +ASPI1TAB57 PO; -BP MED UNKNOWN; +BUSP10TA PO; +CARB10TA2 PO; +DEPA500T3 PO; -DULO20 PO; +GABA300C5 PO; +GLIP10TA6 PO; -GLIP5 PO; -GLUCTAB PO; +LEVO25TA4 PO; -NOVORP2 SQ; +PLAV75TA29 PO; -POTA-243 PO; +ROBA500T PO; +TRAZ50TA12 PO; +VENL75TA PO
[2017-10-15 22:12] VITALS: BP 151/69; PULSE 99; RESP 32; TEMP 99.6; O2SAT 96
[2017-10-15 22:53] VITALS: RESP 24
[2017-10-15 23:28] LABS: AUTOMATED NEUTROPHIL # 5.6 TH/MM3 (1.8-7.7); BASOPHIL # 0.1 TH/MM3 (0-0.2); EOSINOPHIL # 0.2 TH/MM3 (0-0.4); EOSINOPHIL % 1.8 % (0.0-4.0); HEMATOCRIT 42.4 % (39.0-51.0); HEMOGLOBIN 14.4 GM/DL (13.0-17.0); LYMPH % 29.2 % (9.0-44.0); LYMPHOCYTE # 2.7 TH/MM3 (1.0-4.8); MEAN CELL VOLUME 91.7 FL (80.0-100.0); MEAN CORPUSCULAR HEMOGLOBIN 31.1 PG (27.0-34.0); MEAN CORPUSCULAR HGB CONC 33.9 % (32.0-36.0); MEAN PLATELET VOLUME 8.6 FL (7.0-11.0); MONO % 6.5 % (0.0-8.0); MONOCYTE # 0.6 TH/MM3 (0-0.9); NEUT % 61.5 % (16.0-70.0); PLATELET COUNT 201 TH/MM3 (150-450); RED BLOOD COUNT 4.62 MIL/MM3 (4.50-5.90); RED CELL DISTRIBUTION WIDTH 13.4 % (11.6-17.2); WHITE BLOOD COUNT 9.1 TH/MM3 (4.0-11.0)
[2017-10-15 23:46] LABS: BILIRUBIN, URINE NEG (NEG); BLOOD, URINE NEG (NEG); GLUCOSE,URINE TRACE mg/dL (NEG); HYALINE CAST, URINE 46 /lpf (RARE); KETONE, URINE 10 mg/dL (NEG); MUCUS URINE FEW /lpf (OCC); NITRITE,URINE NEG (NEG); PH, URINE 5.5 (5.0-8.5); SQUAMOUS EPITHELIAL CELL URINE 1 /hpf (0-5); URINE COLOR YELLOW (YELLW/STRAW); URINE LEUKOCYTE ESTERASE TRACE (NEG)
[2017-10-16 00:12] LABS: ALKALINE PHOSPHATASE 86 U/L (45-117); ALT (GPT) 11 U/L (12-78); AST (GOT) 16 U/L (15-37); BICARBONATE 25.6 MEQ/L (21.0-32.0); BLOOD UREA NITROGEN 29 MG/DL (7-18); CHLORIDE 107 MEQ/L (98-107); CREATININE 1.47 MG/DL (0.60-1.30); GLOMERULAR FILTRATION RATE 48 ML/MIN (>89); GLUCOSE,RANDOM 61 MG/DL (74-106); SODIUM (NA) 144 MEQ/L (136-145); TOTAL BILIRUBIN ADULT 0.5 MG/DL (0.2-1.0); TOTAL PROTEIN 7.8 GM/DL (6.4-8.2)
[2017-10-16 00:14] LABS: ACETAMINOPHEN LESS THAN 2.0 MCG/ML (10.0-30.0)
[2017-10-16] MEDS ORDERED: RESP: ALBUTEROL 2.5 MG/IPRATROPIUM 0.5 MG NEB (SCH) NEB ONE (00:15)
[2017-10-16] MEDS ORDERED: GLUCAGON 1 MG/ML VIAL OTHER PRN (00:15)
[2017-10-16] MEDS ORDERED: DEXTROSE 50% IN WATER 50 ML VIAL(D50) IV PUSH PRN (00:15)
[2017-10-16] MEDS ORDERED: SODIUM CHLOR 0.9% 1000 ML INJ 1,000 ML IV ONE (00:30)
[2017-10-16 00:45] VITALS: O2SAT 96
--- NOTE | 2017-10-16 00:45 | PD ---
HPI Chief Complaint: Psychiatric Symptoms Time Seen by Provider: 22:35 Travel History International Travel<30 days: No Contact w/Intl Traveler<30days: No Traveled to known affect area: No History of Present Illness HPI Patient is a 67-year-old male presenting to emergency department voluntarily for psychiatric evaluation. Patient reports a history of depression and bipolar disorder. He reports compliance with his medications however he states he remains depressed and he is scared to be home because he does not know what he might do. Patient presented with his son who reports he has been depressed more so lately. Patient states he does not know why he is depressed and he does not have a reason to but he can help it. He denies any hallucinations, alcohol use, drug use other than the occasional marijuana. Symptom onset is unknown, symptoms are moderate in nature. Patient has no physical complaints at this time. Patient states when he is feeling very depressed he takes a few hits of marijuana which improves his symptoms somewhat. 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) Headaches: Yes Hypertension: Yes Parkinson's Disease: Yes Respiratory: Yes Myocardial Infarction: Yes Seizures: No Past Surgical History Coronary Artery Bypass Graft: Yes (TRIPLE BYPASS 2004) Coronary Stent: Yes (X 3) Other Surgery: Yes (LEFT LUNG BIOPSY, NO MALIGNANCY FOUND) Social History Alcohol Use: No Tobacco Use: Yes (1-2 CIGARETTES A DAY) Substance Use: No Allergies-Medications (Allergen,Severity, Reaction): Coded Allergies: diatrizoate meglumine (Unverified Allergy, Mild, 10/15/17) gadobenic acid (Unverified Allergy, Mild, 10/15/17) gadodiamide (Unverified Allergy, Mild, 10/15/17) gadoteridol (Unverified Allergy, Mild, 10/15/17) iodixanol (Unverified Allergy, Mild, 10/15/17) iohexol (Unverified Allergy, Mild, 10/15/17) Reported Meds & Prescriptions Reported Meds & Active Scripts Active Trazodone (Trazodone HCl) 50 Mg Tab 150 Mg PO HS 15 Days Depakote ER (Divalproex Sodium) 500 Mg Zuly 1,000 Mg PO DAILY 15 Days Reported Glipizide 10 Mg Tab 10 Mg PO BIDAC Take 30 minutes before a meal Plavix (Clopidogrel Bisulfate) 75 Mg Tab 75 Mg PO DAILY Robaxin (Methocarbamol) 500 Mg Tab 500 Mg PO HS Levothyroxine (Levothyroxine Sodium) 25 Mcg Tab 25 Mcg PO DAILY Zocor (Simvastatin) 40 Mg Tab 40 Mg PO DAILY Aspirin 81 (Aspirin) 81 Mg Tabdr 81 Mg PO DAILY Effexor (Venlafaxine HCl) 75 Mg Tab 75 Mg PO Q12H Carbidopa-Levodopa 10-100 Mg Tab 1 Tab PO Q8HR Gabapentin 300 Mg Cap 300 Mg PO TID Buspirone (Buspirone HCl) 10 Mg Tab 10 Mg PO TID Review of Systems Except as stated in HPI: all other systems reviewed are Neg Psychiatric: Positive: Depression, Suicidal Ideations Physical Exam Narrative GENERAL: Well-developed, well-nourished, alert elderly gentleman. Presenting in no acute distress. SKIN: Warm and dry. HEAD: Atraumatic. Normocephalic. EYES: Pupils equal and round. No scleral icterus. No injection or drainage. ENT: No nasal bleeding or discharge. Mucous membranes pink and moist. NECK: Trachea midline. No JVD. CARDIOVASCULAR: Regular rate and rhythm. RESPIRATORY: No accessory muscle use. Scattered expiratory wheezes. GASTROINTESTINAL: Abdomen soft, non-tender, nondistended. Hepatic and splenic margins not palpable. MUSCULOSKELETAL: Extremities without clubbing, cyanosis, or edema. No obvious deformities. NEUROLOGICAL: Awake and alert. No obvious cranial nerve deficits. Motor grossly within normal limits. Five out of 5 muscle strength in the arms and legs. Normal speech. Tardive dyskinesia PSYCHIATRIC: Appropriate mood and affect; insight and judgment normal. Data Data Last Documented VS Vital Signs Date Time Temp Pulse Resp B/P (MAP) Pulse Ox O2 Delivery O2 Flow Rate FiO2 10/16/17 00:45 96 Nasal Cannula 2.00 10/15/17 22:53 24 10/15/17 22:12 99.6 99 151/69 (96) Orders Orders Complete Blood Count With Diff (10/15/17 22:50) Comprehensive Metabolic Panel (10/15/17 22:50) Thyroid Stimulating Hormone (10/15/17 22:50) Urinalysis - C+S If Indicated (10/15/17 22:50) Oximetry (10/15/17 22:50) Iv Access Insert/Monitor (10/15/17 22:50) Ecg Monitoring (10/15/17 22:50) Psych Screen (10/15/17 22:50) Drug Screen, Random Urine (10/15/17 22:50) Alcohol (Ethanol) (10/15/17 22:50) Salicylates (Aspirin) (10/15/17 22:50) Tylenol (Acetaminophen) (10/15/17 22:50) Albuterol-Ipratropium Neb (Duoneb Neb) (10/16/17 00:15) Diet 1800 Ada Cons Carb (10/16/17 Breakfast) Bedside Glucose GEETA.CSUGAR (10/16/17 00:08) Blood Glucose Goal (Criteria) (10/16/17 00:08) Hypoglycemia 70 Mg/Dl Or < (10/16/17 00:08) Notify Dr: Other (10/16/17 00:08) Dextrose 50% In Zafar (Vial) Inj (D50w (Vi (10/16/17 00:15) Glucagon Inj (Glucagon Inj) (10/16/17 00:15) Insulin Human Reg Supp Scale (Novolin R (10/16/17 08:00) Sodium Chlor 0.9% 1000 Ml Inj (Ns 1000 M (10/16/17 00:30) Carbidopa-Levodopa 10-100 Mg (Sinemet 10 (10/16/17 01:30) Buspirone (Buspar) (10/16/17 01:30) Gabapentin (Neurontin) (10/16/17 01:30) Methocarbamol (Robaxin) (10/16/17 01:30) Venlafaxine Xr (Effexor Xr) (10/16/17 01:30) Labs Laboratory Tests Test 10/15/17 23:15 White Blood Count 9.1 TH/MM3 Red Blood Count 4.62 MIL/MM3 Hemoglobin 14.4 GM/DL Hematocrit 42.4 % Mean Corpuscular Volume 91.7 FL Mean Corpuscular Hemoglobin 31.1 PG Mean Corpuscular Hemoglobin Concent 33.9 % Red Cell Distribution Width 13.4 % Platelet Count 201 TH/MM3 Mean Platelet Volume 8.6 FL Neutrophils (%) (Auto) 61.5 % Lymphocytes (%) (Auto) 29.2 % Monocytes (%) (Auto) 6.5 % Eosinophils (%) (Auto) 1.8 % Basophils (%) (Auto) 1.0 % Neutrophils # (Auto) 5.6 TH/MM3 Lymphocytes # (Auto) 2.7 TH/MM3 Monocytes # (Auto) 0.6 TH/MM3 Eosinophils # (Auto) 0.2 TH/MM3 Basophils # (Auto) 0.1 TH/MM3 CBC Comment DIFF FINAL Differential Comment Urine Color YELLOW Urine Turbidity CLEAR Urine pH 5.5 Urine Specific Arboles 1.025 Urine Protein TRACE mg/dL Urine Glucose (UA) TRACE mg/dL Urine Ketones 10 mg/dL Urine Occult Blood NEG Urine Nitrite NEG Urine Bilirubin NEG Urine Urobilinogen 2.0 MG/DL Urine Leukocyte Esterase TRACE Urine WBC 3 /hpf Urine Squamous Epithelial Cells 1 /hpf Urine Hyaline Casts 46 /lpf Urine Mucus FEW /lpf Microscopic Urinalysis Comment CULT NOT INDICATED Blood Urea Nitrogen 29 MG/DL Creatinine 1.47 MG/DL Random Glucose 61 MG/DL Total Protein 7.8 GM/DL Albumin 4.0 GM/DL Calcium Level 9.0 MG/DL Alkaline Phosphatase 86 U/L Aspartate Amino Transf (AST/SGOT) 16 U/L Alanine Aminotransferase (ALT/SGPT) 11 U/L Total Bilirubin 0.5 MG/DL Sodium Level 144 MEQ/L Potassium Level 4.3 MEQ/L Chloride Level 107 MEQ/L Carbon Dioxide Level 25.6 MEQ/L Anion Gap 11 MEQ/L Estimat Glomerular Filtration Rate 48 ML/MIN Thyroid Stimulating Hormone 3rd Gen 5.210 uIU/ML Salicylates Level 1.9 MG/DL Urine Opiates Screen NEG Acetaminophen Level LESS THAN 2.0 MCG/ML Urine Barbiturates Screen NEG Urine Amphetamines Screen NEG Urine Benzodiazepines Screen NEG Urine Cocaine Screen NEG Urine Cannabinoids Screen NEG Ethyl Alcohol Level LESS THAN 3 MG/DL MDM Medical Decision Making Medical Screen Exam Complete: Yes Emergency Medical Condition: Yes Interpretation(s) Vital Signs Date Time Temp Pulse Resp B/P (MAP) Pulse Ox O2 Delivery O2 Flow Rate FiO2 10/16/17 00:45 96 Nasal Cannula 2.00 10/15/17 22:53 24 10/15/17 22:12 99.6 99 32 151/69 (96) 96 Laboratory Tests Test 5/29/18 23:15 White Blood Count 9.1 TH/MM3 Red Blood Count 4.62 MIL/MM3 Hemoglobin 14.4 GM/DL Hematocrit 42.4 % Mean Corpuscular Volume 91.7 FL Mean Corpuscular Hemoglobin 31.1 PG Mean Corpuscular Hemoglobin Concent 33.9 % Red Cell Distribution Width 13.4 % Platelet Count 201 TH/MM3 Mean Platelet Volume 8.6 FL Neutrophils (%) (Auto) 61.5 % Lymphocytes (%) (Auto) 29.2 % Monocytes (%) (Auto) 6.5 % Eosinophils (%) (Auto) 1.8 % Basophils (%) (Auto) 1.0 % Neutrophils # (Auto) 5.6 TH/MM3 Lymphocytes # (Auto) 2.7 TH/MM3 Monocytes # (Auto) 0.6 TH/MM3 Eosinophils # (Auto) 0.2 TH/MM3 Basophils # (Auto) 0.1 TH/MM3 CBC Comment DIFF FINAL Differential Comment Urine Color YELLOW Urine Turbidity CLEAR Urine pH 5.5 Urine Specific [place]oles 1.025 Urine Protein TRACE mg/dL Urine Glucose (UA) TRACE mg/dL Urine Ketones 10 mg/dL Urine Occult Blood NEG Urine Nitrite NEG Urine Bilirubin NEG Urine Urobilinogen 2.0 MG/DL Urine Leukocyte Esterase TRACE Urine WBC 3 /hpf Urine Squamous Epithelial Cells 1 /hpf Urine Hyaline Casts 46 /lpf Urine Mucus FEW /lpf Microscopic Urinalysis Comment CULT NOT INDICATED Blood Urea Nitrogen 29 MG/DL Creatinine 1.47 MG/DL Random Glucose 61 MG/DL Total Protein 7.8 GM/DL Albumin 4.0 GM/DL Calcium Level 9.0 MG/DL Alkaline Phosphatase 86 U/L Aspartate Amino Transf (AST/SGOT) 16 U/L Alanine Aminotransferase (ALT/SGPT) 11 U/L Total Bilirubin 0.5 MG/DL Sodium Level 144 MEQ/L Potassium Level 4.3 MEQ/L Chloride Level 107 MEQ/L Carbon Dioxide Level 25.6 MEQ/L Anion Gap 11 MEQ/L Estimat Glomerular Filtration Rate 48 ML/MIN Thyroid Stimulating Hormone 3rd Gen 5.210 uIU/ML Salicylates Level 1.9 MG/DL Urine Opiates Screen NEG Acetaminophen Level LESS THAN 2.0 MCG/ML Urine Barbiturates Screen NEG Urine Amphetamines Screen NEG Urine Benzodiazepines Screen NEG Urine Cocaine Screen NEG Urine Cannabinoids Screen NEG Ethyl Alcohol Level LESS THAN 3 MG/DL Vital Signs Date Time Temp Pulse Resp B/P (MAP) Pulse Ox O2 Delivery O2 Flow Rate FiO2 10/16/17 00:45 96 Nasal Cannula 2.00 10/15/17 22:53 24 10/15/17 22:12 99.6 99 32 151/69 (96) 96 Differential Diagnosis Suicidal ideations versus depression versus bipolar disorder versus metabolic abnormality versus COPD exacerbation versus other Narrative Course Patient is a 67-year-old male presenting voluntarily to the emergency department psychiatric evaluation with his family members. Patient was tachypneic on arrival, he is O2 dependent due to COPD. Patient's respirations improved when he was placed back on oxygen. Mental health screening discussed with the patient. Psychiatric screen ordered. Patient was given doses of home medications that were due in the evening in the emergency department. CBC with no acute finding, chemistry with elevated BUN and creatinine which is mildly elevated when compared to prior, patient be given 1 L of IV fluids now. TSH is elevated at 5.2, patient is on levothyroxine 25 mcg daily. Patient reports compliance of medications. Urinalysis and urine drug screen is negative. Patient reports improvement in wheezing after DuoNeb treatment. Patient is medically clear for psychiatric evaluation. Diagnosis Primary Impression: Medical clearance for psychiatric admission Additional Impressions: Hypothyroidism Qualified Codes: E03.9 - Hypothyroidism, unspecified Abnormal thyroid blood test COPD (chronic obstructive pulmonary disease) Qualified Codes: J44.9 - Chronic obstructive pulmonary disease, unspecified Condition: Pham Dunbar October 16, 2017 00:45
[2017-10-16] MEDS ORDERED: VENLAFAXINE HCL XR 75 MG CAP PO ONE ×2 (01:30→12:00)
[2017-10-16] MEDS ORDERED: CARBIDOPA/LEVODOPA 10 MG/100 MG TAB PO ONE (01:30)
[2017-10-16] MEDS ORDERED: METHOCARBAMOL 500 MG TAB PO ONE (01:30)
[2017-10-16] MEDS ORDERED: GABAPENTIN 300 MG CAP PO ONE (01:30)
[2017-10-16] MEDS ORDERED: busPIRone HCL 10 MG TAB PO ONE (01:30)
[2017-10-16 03:00] VITALS: BP 132/69; PULSE 83; RESP 20; O2SAT 97
[2017-10-16 07:10] VITALS: BP 133/63; PULSE 79; RESP 19; O2SAT 97
[2017-10-16] MEDS: INSULIN NovoLIN REGULAR SUPPLEMENTAL SCALE SQ SCH ×4 (08:00→18:22)
[2017-10-16] MEDS ORDERED: ALUMINUM/MAGNESIUM/SIMETH 30 ML CUP PO PRN (11:00)
[2017-10-16] MEDS ORDERED: REMOVE OLD PATCH T-DERMAL SCH (11:00)
[2017-10-16] MEDS ORDERED: ACETAMINOPHEN 325 MG TAB PO PRN (11:00)
[2017-10-16] MEDS ORDERED: MAGNESIUM HYDROXIDE SUSP 30 ML CUP PO PRN (11:00)
[2017-10-16] MEDS ORDERED: LEVOTHYROXINE SODIUM 25 MCG TAB PO SCH (11:00)
[2017-10-16] MEDS ORDERED: NON-FORMULARY DRUG (Simvastatin (Zocor) 40 MG) PO SCH (11:00)
[2017-10-16] MEDS ORDERED: NON-FORMULARY DRUG (Venlafaxine (Effexor) 75 MG) PO SCH (11:00)
[2017-10-16] MEDS: glipiZIDE 10 MG TAB PO SCH ×2 (11:25→16:18)
[2017-10-16] MEDS: busPIRone HCL 10 MG TAB PO SCH ×2 (11:25→18:10)
[2017-10-16] MEDS: DIVALPROEX SODIUM E.R. 500 MG TAB PO SCH (11:26)
[2017-10-16] MEDS: CARBIDOPA/LEVODOPA 10 MG/100 MG TAB PO SCH ×2 (11:26→21:57)
[2017-10-16] MEDS: NICOTINE 21 MG/24 HR PATCH T-DERMAL SCH (11:55)
[2017-10-16] MEDS: PRAVASTATIN SOD 80 MG TAB PO SCH (11:55)
[2017-10-16] MEDS: CLOPIDOGREL 75 MG TAB PO SCH (11:55)
[2017-10-16 11:58] VITALS: BP 148/82; PULSE 77; RESP 19; O2SAT 98
[2017-10-16 12:53] LABS: FREE T3 2.14 PG/ML (2.18-3.98); FREE T4 0.84 NG/DL (0.76-1.46)
[2017-10-16] MEDS: GABAPENTIN 300 MG CAP PO SCH ×2 (13:49→18:10)
--- NOTE | 2017-10-16 13:52 | EKG ---
Date Performed: 10/16/2017 Time Performed: 11:10:17 PTAGE: 67 years EKG: Sinus rhythm POSSIBLE LEFT ATRIAL ENLARGEMENT POSSIBLE INFERIOR MYOCARDIAL INFARCTION ABNORMAL ECG PREVIOUS TRACING : 05/06/2007 04.12 DOCTOR: Florencio Massey Interpretating Date/Time 10/16/2017 13:51:22
--- NOTE | 2017-10-16 13:56 | PD ---
History of Present Illness Chief Complaint: Psychiatric Symptoms Time Seen by Provider: 10:08 Travel History International Travel<30 Days: No Contact w/Intl Traveler<30days: No Known affected area: No Legal Status Legal Status: Voluntary History of Present Illness: This is a 74-year-old , male who presents to this facility voluntarily for self reported homicidal ideation. Patient is known to this facility was admitted last month for a couple of days. Reviewed electronic medical record, labs, discuss case with staff. Patient was evaluated in his room and the main ED. He was found awake, alert, and oriented 4. He is oxygen dependent due to his COPD. His speech is clear, organized, logical. His mood is anxious to irritable and his affect is labile. He does not appear to be internally stimulated nor is there any evidence of thought blocking. He denies being suicidal. Endorses homicidal ideation against a particular individual. He relates that he had a recent altercation and states, "I just lost it if the guys had one more thing I would have heard him and I would have stopped". When asked what the ramifications of harming this individual would be patient responds, "I would go to group home". He reports that if he encountered this individual again he would "take my oxygen bottle and feed him with that and I would keep meeting with it". However, he also reports that he has been more labile with family members "yelling at my son". Patient is a and he follows up with the [facility] for medication management. He reports he has been compliant with his medications. He denies any auditory or visual hallucinations. I can elicit no delusional material. He reports that he smokes approximately one third pack of cigarettes per day. Claims to have quit drinking in 1972 stating that it "was causing the problems in my life". He reports that he smokes marijuana "every once in a while". He reports that he attempted suicide approximately 6 years ago by overdose of his prescription medications. He lives with his son. Has been for approximately 8 years. Denies owning any firearms. 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 He is currently on SSI. His TSH is elevated at 5.21. There is also elevation of his BUN at 29 and his creatinine 1.47. 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 Hx Psychiatric Treatment: Patient reports he has a diagnosis of Bipolar Disorder and Schizophrenia. History of Inpatient Treatment: No Guns or firearms in home: No Social History X 8 years. Lives with son. 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 Previous . Hx Alcohol Use: No Hx Tobacco Use: Yes (1-2 CIGARETTES A DAY) Hx Substance Use: No Hx of Substance Use Treatment: No Allergies-Medications (Allergen,Severity, Reaction): Coded Allergies: diatrizoate meglumine (Unverified Allergy, Mild, 10/15/17) gadobenic acid (Unverified Allergy, Mild, 10/15/17) gadodiamide (Unverified Allergy, Mild, 10/15/17) gadoteridol (Unverified Allergy, Mild, 10/15/17) iodixanol (Unverified Allergy, Mild, 10/15/17) iohexol (Unverified Allergy, Mild, 10/15/17) Reported Meds & Prescriptions Reported Meds & Active Scripts Active Trazodone (Trazodone HCl) 50 Mg Tab 150 Mg PO HS 15 Days Depakote ER (Divalproex Sodium) 500 Mg Zuly 1,000 Mg PO DAILY 15 Days Reported Glipizide 10 Mg Tab 10 Mg PO BIDAC Take 30 minutes before a meal Plavix (Clopidogrel Bisulfate) 75 Mg Tab 75 Mg PO DAILY Robaxin (Methocarbamol) 500 Mg Tab 500 Mg PO HS Levothyroxine (Levothyroxine Sodium) 25 Mcg Tab 25 Mcg PO DAILY Zocor (Simvastatin) 40 Mg Tab 40 Mg PO DAILY Aspirin 81 (Aspirin) 81 Mg Tabdr 81 Mg PO DAILY Effexor (Venlafaxine HCl) 75 Mg Tab 75 Mg PO Q12H Carbidopa-Levodopa 10-100 Mg Tab 1 Tab PO Q8HR Gabapentin 300 Mg Cap 300 Mg PO TID Buspirone (Buspirone HCl) 10 Mg Tab 10 Mg PO TID Mental Status Examination Appearance: Disheveled Consciousness: Alert Orientation: x4 Speech: Unremarkable Language: Adequate Fund of Knowledge: Adequate Attention and Concentration: Adequate Memory: Unremarkable Mood: Anxious, Irritable Affect: Labile, Anxious Thought Process & Associations: Intact Thought Content: Appropriate Hallucination Type: None Delusion Type: None Suicidal Ideation: No Suicidal Plan: No Suicidal Intention: No Homicidal Ideation: Yes Homicidal Plan: Yes Homicidal Intention: Yes Insight: Fair Judgment: Impulsive [facility] Medical Decision Making Assessment/Plan 67 y/o , male presents voluntarily to this facility for reported homicidal ideation. Upon examination today, patient is found sitting on the stretcher awake, alert, and oriented x 4. His speech is clear, logical and organized. His mood is irritable/anxious and his affect is labile. During the interview patient was alternately tearful and angry. He denies SI, auditory or visual hallucinations. He endorse homicide by "beating him with my oxygen tank". He does understand the possible consequences of these actions. He additionally reports increasing lability and anger at his son whom he lives with. He states that he believes it is due to his medication "not working as well". [facility] to the hospital. He relates that he is fearful he will harm someone in one of his moments "of rage", and is trying to avoid that. Out of an overabundance of caution, I will admit this patient to for further evaluation and treatment as deemed necessary. Orders Orders Complete Blood Count With Diff (10/15/17 22:50) Comprehensive Metabolic Panel (10/15/17 22:50) Thyroid Stimulating Hormone (10/15/17 22:50) Urinalysis - C+S If Indicated (10/15/17 22:50) Oximetry (10/15/17 22:50) Iv Access Insert/Monitor (10/15/17 22:50) Ecg Monitoring (10/15/17 22:50) Psych Screen (10/15/17 22:50) Drug Screen, Random Urine (10/15/17 22:50) Alcohol (Ethanol) (10/15/17 22:50) Salicylates (Aspirin) (10/15/17 22:50) Tylenol (Acetaminophen) (10/15/17 22:50) Albuterol-Ipratropium Neb (Duoneb Neb) (10/16/17 00:15) Bedside Glucose GEETA.CSUGAR (10/16/17 00:08) Blood Glucose Goal (Criteria) (10/16/17 00:08) Hypoglycemia 70 Mg/Dl Or < (10/16/17 00:08) Notify Dr: Other (10/16/17 00:08) Dextrose 50% In Zafar (Vial) Inj (D50w (Vi (10/16/17 00:15) Glucagon Inj (Glucagon Inj) (10/16/17 00:15) Insulin Human Reg Supp Scale (Novolin R (10/16/17 08:00) Sodium Chlor 0.9% 1000 Ml Inj (Ns 1000 M (10/16/17 00:30) Carbidopa-Levodopa 10-100 Mg (Sinemet 10 (10/16/17 01:30) Buspirone (Buspar) (10/16/17 01:30) Gabapentin (Neurontin) (10/16/17 01:30) Methocarbamol (Robaxin) (10/16/17 01:30) Venlafaxine Xr (Effexor Xr) (10/16/17 01:30) Diet Regular Basic (10/16/17 Breakfast) Admit Order (Ed Use Only) (10/16/17 10:48) Admit To Inpatient Psych (10/16/17 ) Code Status (10/16/17 10:50) Vital Signs (Adult) GEETA.Q12H.E (10/16/17 10:50) Activity Oob Ad Lilo (10/16/17 10:50) Level Of Observation (Psych) (10/16/17 10:50) Acetaminophen (Tylenol) (10/16/17 11:00) Magnesium Hydroxide Liq (Milk Of Magnesi (10/16/17 11:00) Al-Mag Hy-Si 40-40-4 Mg/Ml Liq (Mag-Al P (10/16/17 11:00) Nicotine 21 Mg Patch.24 Hr (Habitrol 21 (10/16/17 11:00) Basic Metabolic Panel (Bmp) (10/17/17 06:00) Lipid Profile (10/17/17 06:00) Hemoglobin (Hgb) A1c (10/17/17 06:00) Electrocardiogram (10/17/17 ) Remove Old Patch (10/16/17 11:00) Buspirone (Buspar) (10/16/17 13:00) Carbidopa-Levodopa 10-100 Mg (Sinemet 10 (10/16/17 14:00) Clopidogrel (Plavix) (10/16/17 11:00) Divalproex Er (Depakote Er) (10/16/17 11:00) Gabapentin (Neurontin) (10/16/17 13:00) Glipizide (Glucotrol) (10/16/17 11:00) Levothyroxine (Synthroid) (10/16/17 11:00) Trazodone (Desyrel) (10/16/17 21:00) (Nf) Simvastatin (Zocor) (10/16/17 11:00) (Nf) Venlafaxine (Effexor) (10/16/17 11:00) Valproic Acid (Depakene) (10/16/17 10:55) Consult Hospitalist (10/16/17 ) Oxygen Administration (10/16/17 11:11) Pravastatin (Pravachol) (10/16/17 12:00) Remove Old Patch (10/17/17 09:00) Venlafaxine Xr (Effexor Xr) (10/17/17 09:00) Venlafaxine Xr (Effexor Xr) (10/16/17 12:00) Electrocardiogram (10/16/17 11:10) (Hub Use Only)Inp Phy Cons/Ref (10/16/17 ) Free T3 (10/16/17 11:54) Free Thyroxine (T4) (10/16/17 11:54) Results Vital Signs Date Time Temp Pulse Resp B/P (MAP) Pulse Ox O2 Delivery O2 Flow Rate FiO2 10/16/17 12:44 10/16/17 11:58 77 19 148/82 (104) 98 Nasal Cannula 2.00 10/16/17 11:55 98 Nasal Cannula 2.00 10/16/17 07:10 79 19 133/63 (86) 97 Room Air 10/16/17 03:00 83 20 132/69 (90) 97 Nasal Cannula 2.00 10/16/17 00:45 96 Nasal Cannula 2.00 10/15/17 22:53 24 10/15/17 22:12 99.6 99 32 151/69 (96) 96 Laboratory Tests Test 10/15/17 23:15 10/16/17 11:54 White Blood Count 9.1 Red Blood Count 4.62 Hemoglobin 14.4 Hematocrit 42.4 Mean Corpuscular Volume 91.7 Mean Corpuscular Hemoglobin 31.1 Mean Corpuscular Hemoglobin Concent 33.9 Red Cell Distribution Width 13.4 Platelet Count 201 Mean Platelet Volume 8.6 Neutrophils (%) (Auto) 61.5 Lymphocytes (%) (Auto) 29.2 Monocytes (%) (Auto) 6.5 Eosinophils (%) (Auto) 1.8 Basophils (%) (Auto) 1.0 Neutrophils # (Auto) 5.6 Lymphocytes # (Auto) 2.7 Monocytes # (Auto) 0.6 Eosinophils # (Auto) 0.2 Basophils # (Auto) 0.1 CBC Comment DIFF FINAL Differential Comment Urine Color YELLOW Urine Turbidity CLEAR Urine pH 5.5 Urine Specific [place] 1.025 Urine Protein TRACE Urine Glucose (UA) TRACE Urine Ketones 10 Urine Occult Blood NEG Urine Nitrite NEG Urine Bilirubin NEG Urine Urobilinogen 2.0 Urine Leukocyte Esterase TRACE Urine WBC 3 Urine Squamous Epithelial Cells 1 Urine Hyaline Casts 46 Urine Mucus FEW Microscopic Urinalysis Comment CULT NOT INDICATED Blood Urea Nitrogen 29 Creatinine 1.47 Random Glucose 61 Total Protein 7.8 Albumin 4.0 Calcium Level 9.0 Alkaline Phosphatase 86 Aspartate Amino Transf (AST/SGOT) 16 Alanine Aminotransferase (ALT/SGPT) 11 Total Bilirubin 0.5 Sodium Level 144 Potassium Level 4.3 Chloride Level 107 Carbon Dioxide Level 25.6 Anion Gap 11 Estimat Glomerular Filtration Rate 48 Thyroid Stimulating Hormone 3rd Gen 5.210 Salicylates Level 1.9 Urine Opiates Screen NEG Acetaminophen Level LESS THAN 2.0 Urine Barbiturates Screen NEG Urine Amphetamines Screen NEG Urine Benzodiazepines Screen NEG Urine Cocaine Screen NEG Urine Cannabinoids Screen NEG Ethyl Alcohol Level LESS THAN 3 Free Thyroxine 0.84 Free Triiodothyronine (T3) pg/dL 2.14 Valproic Acid (Depakene) Level 30 Diagnosis Primary Impression: Bipolar disorder Additional Impressions: COPD (chronic obstructive pulmonary disease) Hypothyroidism Abnormal thyroid blood test Admitting Information Admitting Physician Requests: Admit Condition: Stable Problem Qualifiers Additional Impressions: COPD (chronic obstructive pulmonary disease) Qualified Codes: J44.9 - Chronic obstructive pulmonary disease, unspecified Hypothyroidism Qualified Codes: E03.9 - Hypothyroidism, unspecified Alia Nathan October 16, 2017 13:56
--- NOTE | 2017-10-16 16:54 | PD.CONS ---
HPI Service [facility] Hospitalists Consult Requested By Dr. Montejo. Reason for Consult Medical management Primary Care Physician [facility] Diagnoses: (1) Hypothyroidism (2) Bipolar disorder (3) COPD (chronic obstructive pulmonary disease) (4) HTN (hypertension) (5) CAD (coronary artery disease) History of Present Illness 66-year-old male with a medical history significant for hypothyroidism, COPD, coronary artery disease, hypertension, diabetes admitted to the psychiatric unit for bipolar disorder. Patient reports he has been feeling more depressed lately and has become more irritable and unsure of himself. Hospitalist service consulted for medical management. Medical history reviewed with the patient. He reports he has been compliant with his medications including his thyroid medications. He does have wheezing chronically from COPD. However he continues to smoke tobacco. He denies any recent episodes of chest pain. Review of Systems Respiratory: COMPLAINS OF: Wheezing Psychiatric: COMPLAINS OF: Depression, Agitation Except as stated in HPI: all other systems reviewed are Neg Past Family Social History Allergies: Coded Allergies: diatrizoate meglumine (Unverified Allergy, Mild, 10/15/17) gadobenic acid (Unverified Allergy, Mild, 10/15/17) gadodiamide (Unverified Allergy, Mild, 10/15/17) gadoteridol (Unverified Allergy, Mild, 10/15/17) iodixanol (Unverified Allergy, Mild, 10/15/17) iohexol (Unverified Allergy, Mild, 10/15/17) Past Medical History As stated in the HPI. Past Surgical History Coronary Artery Bypass Graft: Yes (TRIPLE BYPASS 2004) Coronary Stent: Yes (X 3) Other Surgery: Yes (LEFT LUNG BIOPSY, NO MALIGNANCY FOUND) Reported Medications Reported Meds & Active Scripts Active Trazodone (Trazodone HCl) 50 Mg Tab 150 Mg PO HS 15 Days Depakote ER (Divalproex Sodium) 500 Mg Zuly 1,000 Mg PO DAILY 15 Days Reported Glipizide 10 Mg Tab 10 Mg PO BIDAC Take 30 minutes before a meal Plavix (Clopidogrel Bisulfate) 75 Mg Tab 75 Mg PO DAILY Robaxin (Methocarbamol) 500 Mg Tab 500 Mg PO HS Levothyroxine (Levothyroxine Sodium) 25 Mcg Tab 25 Mcg PO DAILY Zocor (Simvastatin) 40 Mg Tab 40 Mg PO DAILY Aspirin 81 (Aspirin) 81 Mg Tabdr 81 Mg PO DAILY Effexor (Venlafaxine HCl) 75 Mg Tab 75 Mg PO Q12H Carbidopa-Levodopa 10-100 Mg Tab 1 Tab PO Q8HR Gabapentin 300 Mg Cap 300 Mg PO TID Buspirone (Buspirone HCl) 10 Mg Tab 10 Mg PO TID Social History Patient admits to smoking about half a pack of cigarettes per day He denies illicit drug use. He denies alcohol. Physical Exam Vital Signs Vital Signs Date Time Temp Pulse Resp B/P (MAP) Pulse Ox O2 Delivery O2 Flow Rate FiO2 10/16/17 12:44 10/16/17 11:58 77 19 148/82 (104) 98 Nasal Cannula 2.00 10/16/17 11:55 98 Nasal Cannula 2.00 10/16/17 07:10 79 19 133/63 (86) 97 Room Air 10/16/17 03:00 83 20 132/69 (90) 97 Nasal Cannula 2.00 10/16/17 00:45 96 Nasal Cannula 2.00 10/15/17 22:53 24 10/15/17 22:12 99.6 99 32 151/69 (96) 96 Physical Exam GENERAL: Disheveled male. No acute distress. SKIN: No rashes, ecchymoses or lesions. Cool and dry. HEAD: Atraumatic. Normocephalic. No temporal or scalp tenderness. EYES: Pupils equal round and reactive. Extraocular motions intact. No scleral icterus. No injection or drainage. ENT: Nose without bleeding, purulent drainage or septal hematoma. Throat without erythema, tonsillar hypertrophy or exudate. Uvula midline. Airway patent. NECK: Trachea midline. No JVD or lymphadenopathy. Supple, nontender, no meningeal signs. CARDIOVASCULAR: Regular rate and rhythm without murmurs, gallops, or rubs. RESPIRATORY: Patient does have diffuse expiratory wheezing throughout. Chronic per him. No crackles. GASTROINTESTINAL: Abdomen soft, non-tender, nondistended. No hepato-splenomegaly , or palpable masses. No guarding. MUSCULOSKELETAL: Extremities without clubbing, cyanosis, or edema. No joint tenderness, effusion, or edema noted. No calf tenderness. Negative Homans sign bilaterally. NEUROLOGICAL: Awake and alert. Cranial nerves II through XII intact. Motor and sensory grossly within normal limits. Five out of 5 muscle strength in all muscle groups. Normal speech. Laboratory Laboratory Tests Test 10/15/17 23:15 10/16/17 11:54 White Blood Count 9.1 Red Blood Count 4.62 Hemoglobin 14.4 Hematocrit 42.4 Mean Corpuscular Volume 91.7 Mean Corpuscular Hemoglobin 31.1 Mean Corpuscular Hemoglobin Concent 33.9 Red Cell Distribution Width 13.4 Platelet Count 201 Mean Platelet Volume 8.6 Neutrophils (%) (Auto) 61.5 Lymphocytes (%) (Auto) 29.2 Monocytes (%) (Auto) 6.5 Eosinophils (%) (Auto) 1.8 Basophils (%) (Auto) 1.0 Neutrophils # (Auto) 5.6 Lymphocytes # (Auto) 2.7 Monocytes # (Auto) 0.6 Eosinophils # (Auto) 0.2 Basophils # (Auto) 0.1 CBC Comment DIFF FINAL Differential Comment Urine Color YELLOW Urine Turbidity CLEAR Urine pH 5.5 Urine Specific [place] 1.025 Urine Protein TRACE Urine Glucose (UA) TRACE Urine Ketones 10 Urine Occult Blood NEG Urine Nitrite NEG Urine Bilirubin NEG Urine Urobilinogen 2.0 Urine Leukocyte Esterase TRACE Urine WBC 3 Urine Squamous Epithelial Cells 1 Urine Hyaline Casts 46 Urine Mucus FEW Microscopic Urinalysis Comment CULT NOT INDICATED Blood Urea Nitrogen 29 Creatinine 1.47 Random Glucose 61 Total Protein 7.8 Albumin 4.0 Calcium Level 9.0 Alkaline Phosphatase 86 Aspartate Amino Transf (AST/SGOT) 16 Alanine Aminotransferase (ALT/SGPT) 11 Total Bilirubin 0.5 Sodium Level 144 Potassium Level 4.3 Chloride Level 107 Carbon Dioxide Level 25.6 Anion Gap 11 Estimat Glomerular Filtration Rate 48 Thyroid Stimulating Hormone 3rd Gen 5.210 Salicylates Level 1.9 Urine Opiates Screen NEG Acetaminophen Level LESS THAN 2.0 Urine Barbiturates Screen NEG Urine Amphetamines Screen NEG Urine Benzodiazepines Screen NEG Urine Cocaine Screen NEG Urine Cannabinoids Screen NEG Ethyl Alcohol Level LESS THAN 3 Free Thyroxine 0.84 Free Triiodothyronine (T3) pg/dL 2.14 Valproic Acid (Depakene) Level 30 Result Diagram: 10/15/17231410/15/172314 Assessment and Plan Problem List: (1) Bipolar disorder ICD Code: F31.9 - Bipolar disorder, unspecified Status: Acute (2) Hypothyroidism ICD Code: E03.9 - Hypothyroidism, unspecified Status: Chronic (3) Abnormal thyroid blood test ICD Code: R94.6 - Abnormal results of thyroid function studies Status: Acute (4) CAD (coronary artery disease) ICD Code: I25.10 - Atherosclerotic heart disease of [place] coronary artery without angina pectoris Status: Chronic (5) HTN (hypertension) ICD Code: I10 - Essential (primary) hypertension Status: Chronic (6) COPD (chronic obstructive pulmonary disease) ICD Code: J44.9 - Chronic obstructive pulmonary disease, unspecified Status: Acute Assessment and Plan 67-year-old male admitted to the psychiatric unit for bipolar disorder. Hospitalist service following for medical management. Bipolar disorder: - Management per psychiatry COPD: Patient is oxygen dependent. Does use breathing treatments at home 4 times daily. -Continue supplemental oxygen. - Duo nebs 4 times daily - Start Symbicort Hypothyroidism: - TSH low. Patient reports compliance with levothyroxine. - Increase the dose to 50 mcg daily. Outpatient follow-up for repeat TSH in 6 weeks Coronary artery disease status post stent and CABG. -Continue aspirin, Plavix, statin. No beta hermila for now secondary to COPD. Hypertension. Stable continue to monitor. Diabetes mellitus. Continue glipizide Hyperlipidemia. Continue statin Problem Qualifiers (1) Hypothyroidism: Qualified Codes: E03.9 - Hypothyroidism, unspecified (2) COPD (chronic obstructive pulmonary disease): Qualified Codes: J44.9 - Chronic obstructive pulmonary disease, unspecified Maikol Eli MD October 16, 2017 16:54
[2017-10-16 18:00] VITALS: BP 140/74; PULSE 79; RESP 17; TEMP 98.4; O2SAT 97
[2017-10-16] MEDS: RESP: ALBUTEROL 2.5 MG/IPRATROPIUM 0.5 MG NEB (SCH) NEB (20:00)
[2017-10-16] MEDS: BUDESONIDE-FORMOTEROL 160/4.5 MCG INHALER INH SCH (21:00)
[2017-10-16] MEDS: traZODone HCL 50 MG TAB PO SCH (21:00)
[2017-10-17 05:53] VITALS: BP 130/59; PULSE 77; RESP 19; TEMP 98.1; O2SAT 100
[2017-10-17] MEDS: CARBIDOPA/LEVODOPA 10 MG/100 MG TAB PO SCH ×3 (06:00→20:49)
[2017-10-17] MEDS: LEVOTHYROXINE SODIUM 50 MCG TAB PO SCH (06:00)
[2017-10-17] MEDS: glipiZIDE 10 MG TAB PO SCH ×2 (06:23→16:00)
[2017-10-17 07:52] LABS: BICARBONATE 28.9 MEQ/L (21.0-32.0); BLOOD UREA NITROGEN 14 MG/DL (7-18); CALCIUM 9.3 MG/DL (8.5-10.1); CHLORIDE 101 MEQ/L (98-107); CHOLESTEROL 98 MG/DL (120-200); CHOLESTEROL/ HDL RATIO 2.89 RATIO; CREATININE 0.93 MG/DL (0.60-1.30); GLOMERULAR FILTRATION RATE 81 ML/MIN (>89); GLUCOSE,RANDOM 83 MG/DL (74-106); HDL CHOLESTEROL 33.9 MG/DL (40.0-60.0); LDL CHOLESTEROL 40 MG/DL (0-99); SODIUM (NA) 139 MEQ/L (136-145); TRIGLYCERIDES 122 MG/DL (42-150)
[2017-10-17] MEDS: RESP: ALBUTEROL 2.5 MG/IPRATROPIUM 0.5 MG NEB (SCH) NEB ×4 (08:00→20:18)
[2017-10-17] MEDS: INSULIN NovoLIN REGULAR SUPPLEMENTAL SCALE SQ SCH ×4 (08:00→21:00)
--- NOTE | 2017-10-17 08:03 | HHI.PR ---
Subjective Remarks Follow-up visit for COPD, hypothyroidism, HTN and DM. Spoke with nurse reports no acute concerns overnight or this morning. Patient is seen and examined in bed in no acute distress. He denies any shortness of breath, cough, fevers, chills, nausea, vomiting, diarrhea, headaches, dizziness or chest pain. Complains of urinary frequency last night, denies any dysuria. Objective Vitals Vital Signs Date Time Temp Pulse Resp B/P (MAP) Pulse Ox O2 Delivery O2 Flow Rate FiO2 10/17/17 05:53 98.1 77 19 130/59 (82) 100 10/16/17 18:00 98.4 79 17 140/74 (96) 97 10/16/17 12:44 10/16/17 11:58 77 19 148/82 (104) 98 Nasal Cannula 2.00 10/16/17 11:55 98 Nasal Cannula 2.00 I/O 10/16/17 10/16/17 10/16/17 10/17/17 10/17/17 10/17/17 07:00 15:00 23:00 07:00 15:00 23:00 Intake Total 840 ml Balance 840 ml Intake Oral 840 ml Result Diagram: 10/15/17 2315 10/17/17 0705 Objective Remarks GENERAL: Disheveled well-developed male. No acute distress. SKIN: Cool and dry. HEAD: Atraumatic. Normocephalic. EYES: Pupils equal round. No scleral icterus. No injection or drainage. ENT: Nose without bleeding. Airway patent. NECK: Trachea midline. No JVD. CARDIOVASCULAR: Regular rate and rhythm without murmurs, gallops, or rubs. RESPIRATORY: Mild diffused posterior lobe expiratory wheezing. No crackles or rhonchi. No use of accessory muscles, no dyspnea. GASTROINTESTINAL: Abdomen soft, non-tender, nondistended. No guarding. MUSCULOSKELETAL: Extremities without clubbing, cyanosis, or edema. No calf tenderness. NEUROLOGICAL: Awake and alert. Cranial nerves II through XII grossly intact. Motor and sensory grossly within normal limits. Speech is clear. A/P Problem List: (1) Bipolar disorder ICD Code: F31.9 - Bipolar disorder, unspecified Status: Acute (2) Hypothyroidism ICD Code: E03.9 - Hypothyroidism, unspecified Status: Chronic (3) Abnormal thyroid blood test ICD Code: R94.6 - Abnormal results of thyroid function studies Status: Acute (4) CAD (coronary artery disease) ICD Code: I25.10 - Atherosclerotic heart disease of [place] coronary artery without angina pectoris Status: Chronic (5) HTN (hypertension) ICD Code: I10 - Essential (primary) hypertension Status: Chronic (6) COPD (chronic obstructive pulmonary disease) ICD Code: J44.9 - Chronic obstructive pulmonary disease, unspecified Status: Acute Assessment and Plan 67-year-old male admitted to the psychiatric unit for bipolar disorder. Hospitalist service following for medical management. Bipolar disorder: - Management per psychiatry COPD: Patient is oxygen dependent. Does use breathing treatments at home 4 times daily. -Continue supplemental oxygen. -Continue duo nebs 4 times daily and Symbicort -Smoking cessation encouraged. Hypothyroidism: - TSH low. Patient reports compliance with levothyroxine. - Continue increased dose of levothyroxine at 50 mcg daily. Outpatient follow- up for repeat TSH in 6 weeks Coronary artery disease status post stent and CABG. -Continue aspirin, Plavix, statin. No beta hermila for now secondary to COPD. Hypertension. Stable continue to monitor. Diabetes mellitus. -Hemoglobin A1c pending -Accu-Cheks with insulin sliding scale, continue glipizide Hyperlipidemia. Continue statin Urinary frequency -Check UA, afebrile with no leukocytosis. DVT prophylaxis-ambulation Discussed with patient and nurse. Problem Qualifiers (1) Hypothyroidism: Qualified Codes: E03.9 - Hypothyroidism, unspecified (2) COPD (chronic obstructive pulmonary disease): Qualified Codes: J44.9 - Chronic obstructive pulmonary disease, unspecified Kalani Kingsley October 17, 2017 08:03
[2017-10-17] MEDS: CLOPIDOGREL 75 MG TAB PO SCH (08:47)
[2017-10-17] MEDS: GABAPENTIN 300 MG CAP PO SCH ×3 (08:47→18:26)
[2017-10-17] MEDS: busPIRone HCL 10 MG TAB PO SCH ×3 (08:47→18:27)
[2017-10-17] MEDS: ASPIRIN EC 81 MG TABEC PO SCH (08:47)
[2017-10-17] MEDS: VENLAFAXINE HCL XR 75 MG CAP PO SCH (08:47)
[2017-10-17] MEDS: PRAVASTATIN SOD 80 MG TAB PO SCH (08:47)
[2017-10-17] MEDS: DIVALPROEX SODIUM E.R. 500 MG TAB PO SCH (08:48)
[2017-10-17] MEDS: REMOVE OLD PATCH T-DERMAL SCH (08:53)
[2017-10-17] MEDS: NICOTINE 21 MG/24 HR PATCH T-DERMAL SCH (08:53)
[2017-10-17 08:55] VITALS: O2SAT 98
[2017-10-17] MEDS: BUDESONIDE-FORMOTEROL 160/4.5 MCG INHALER INH SCH ×2 (09:00→20:49)
[2017-10-17] MEDS ORDERED: PNEUMOCOCCAL POLYVALENT INJ 25 MCG/0.5 ML SYR IM ONE (10:00)
--- NOTE | 2017-10-17 15:08 | EKG ---
Date Performed: 10/17/2017 Time Performed: 06:49:50 PTAGE: 67 years EKG: Sinus rhythm POSSIBLE LEFT ATRIAL ENLARGEMENT NONSPECIFIC T-WAVE ABNORMALITY BORDERLINE ECG Since the PREVIOUS TRACING , no significant change noted PREVIOUS TRACIN10/16/2017 11.10 DOCTOR: Rojas Velazco Interpretating Date/Time 10/17/2017 15:07:38
--- NOTE | 2017-10-17 15:12 | HHI.HP ---
Provisional Diagnosis Admission Date October 16, 2017 at 10:50 [place]. Bipolar disorder Certification of Person's Competence To Provide Express and Informed Consent I have personally examined Jose Ramon Rhodes , a person being served at [facility] on, October 17, 2017 14:45. Express and informed consent means consent voluntarily given in writing, by a competent person, after sufficient explanation and disclosure of the subject matter involved to enable the person to make a knowing and willful decision without any element of force, fraud, deceit, duress, or other form of constraint or coercion. This person is 18 years of age or older, is not now known to be incompetent to consent to treatment with a guardian advocate, and does not have a health care surrogate or proxy currently making medical treatment decisions. I have found this person to be one of the following: [xxx] Competent to provide express and informed consent, as defined above, for voluntary admission to this facility and is competent to provide express and informed consent for treatment. He/she has the consistent capacity to make well reasoned, willful, and knowing decisions concerning his or her medical or mental health treatment. The person fully and consistently understands the purpose of the admission for examination/placement and is fully capable of personally exercising all rights assured under [place] [] Incompetent to provide express and informed consent to voluntary admission, and this is incompetent to provide express and informed consent to treatment. The person must be transferred to involuntary status and a petition for a guardian advocate filed with the Circuit Court. [] Refusing to provide express and informed consent to voluntary admission but is competent to provide express and informed consent for treatment. The person must be discharged or transferred to involuntary status. Form shall be completed within 24 hours of a person's arrival at the receiving facility and filed in the clinical record of each person: 1. Admitted on a voluntary basis 2. Permitted to provide express and informed consent to his/her own treatment 3. Allowed to transfer from involuntary to voluntary status 4. Prior to permitting a person to consent to his or her own treatment after having been previously found incompetent to consent to treatment. History of Present Illness Capacity: Has Capacity HPI Patient is a 67 y/o man, , , unemployed on SSI, domiciled with son, past psychiatric history of bipolar disorder vs. schizoaffective disorder, prior psychiatric admissions, two previous suicide attempts, past medical history of hypertension, CAD s/p triple bypass, Parkinson, DM, HLD, COPD , hypothyroidism, who presented to the ED accompanied by son endorsing worsening depression in the context of discord with friend and son which patient was admitted to the inpatient psychiatry unit for further evaluation and management. Patient was found sitting on hospital bed, calm and cooperative. He states that recently he has been feeling more depressed with decreased sleep, appetite with no change in concentration and denying any suicidal ideation. He states that he had been having thoughts of harming a drunk friend who was irritating him, "running his mouth", prior to admission which he was able to walk away from. Stressors were explored which he reported contributed to his worsening depression was his argument with his friend and "life in general". Rest of psychiatric ROS were negative, no manic or psychotic symptoms nor any delusional material elicited. Currently he reports feeling depressed, denies SI, HI, AVH or delusions. Family psychiatric history: father with bipolar disorder, denies any suicides in the family. Past psychiatric history: Previous psychiatric diagnosis of bipolar disorder versus schizoaffective disorder, 5 previous psychiatric admissions (last time in August here at [facility]), reports 2 previous suicide attempts via overdose, has outpatient provider [facility], last seen 2 weeks ago with follow-up appointment next due on 11/06/17. Substance use history: Tobacco use (+), marijuana use "occasionally" Past medical history HTN, CAD status post triple bypass, Parkinson's, DM, HLD, COPD, hypothyroidism Allergies: NKDA Social history: , domiciled with son, unemployed, , no asked to firearms, on SSI. Collateral contact is patient's son Jose Ramon Rhodes II ([phone]). Review of Systems Except as stated in HPI: all other systems reviewed are Neg Past Psych History Violence risk - others (6 mos) Elevated due to recent thoughts of harming acquaintance Violence risk - self (6 mos) Low Substance Abuse History Drugs/Alcohol past 12 months Tobacco use (+), marijuana use "occasionally" Past Family Social History Coded Allergies: diatrizoate meglumine (Unverified Allergy, Mild, 10/15/17) gadobenic acid (Unverified Allergy, Mild, 10/15/17) gadodiamide (Unverified Allergy, Mild, 10/15/17) gadoteridol (Unverified Allergy, Mild, 10/15/17) iodixanol (Unverified Allergy, Mild, 10/15/17) iohexol (Unverified Allergy, Mild, 10/15/17) Active Scripts Trazodone (Trazodone) 50 Mg Tab, 150 MG PO HS for Insomnia for 15 Days, TAB 1 Refill Prov:Marck Gonzalez MD 08/30/16 Divalproex ER (Depakote ER) 500 Mg Zuly, 1000 MG PO DAILY for Mental Health for 15 Days, TAB 1 Refill Prov:Marck Gonzalez MD 08/30/16 Reported Medications Glipizide (Glipizide) 10 Mg Tab, 10 MG PO BIDAC for Blood Sugar Management, #60 TAB 0 Refills Take 30 minutes before a meal 08/21/16 Clopidogrel (Plavix) 75 Mg Tab, 75 MG PO DAILY for Blood Clot Prevention, #30 TAB 0 Refills 08/21/16 Methocarbamol (Robaxin) 500 Mg Tab, 500 MG PO HS for Muscle Spasm, TAB 0 Refills 08/21/16 Levothyroxine (Levothyroxine) 25 Mcg Tab, 25 MCG PO DAILY for Thyroid, #30 TAB 0 Refills 08/21/16 Simvastatin (Zocor) 40 Mg Tab, 40 MG PO DAILY for Cholesterol Management, #30 TAB 0 Refills 08/21/[address] (Aspirin 81) 81 Mg Tabdr, 81 MG PO DAILY, TAB 0 Refills 08/21/16 Venlafaxine (Effexor) 75 Mg Tab, 75 MG PO Q12H, #60 TAB 0 Refills 08/21/16 Carbidopa-Levodopa (Carbidopa-Levodopa) 10-100 Mg Tab, 1 TAB PO Q8HR for Parkinson Disease Mgmt, #90 TAB 0 Refills 08/21/16 Gabapentin (Gabapentin) 300 Mg Cap, 300 MG PO TID, #90 CAP 0 Refills 08/21/16 Buspirone (Buspirone) 10 Mg Tab, 10 MG PO TID for Anxiety, TAB 0 Refills 08/21/16 Current Medications Medications (Trade) Dose Ordered Sig/Sherry Route Start Time Stop Time Status Last Admin (D50w (Vial) Inj) 50 ml UNSCH PRN IV PUSH 10/16/17 00:15 (Glucagon Inj) 1 mg UNSCH PRN OTHER 10/16/17 00:15 (NovoLIN R SUPPLEMENTAL SCALE) 1 ACHS SLIDING SCALE SQ 10/16/17 08:00 10/16/17 18:22 (Tylenol) 650 mg Q4H PRN PO 10/16/17 11:00 (Milk Of Magnesia Liq) 30 ml DAILY PRN PO 10/16/17 11:00 (Mag-Al Plus Susp Liq) 30 ml Q6H PRN PO 10/16/17 11:00 (Habitrol 21 Mg Patch.24 Hr) 1 patch DAILY T-DERMAL 10/16/17 11:00 10/16/17 11:55 (Buspar) 10 mg TID PO 10/16/17 13:00 10/17/17 13:42 (Sinemet 10-100 Mg) 1 tab Q8HR PO 10/16/17 14:00 10/17/17 13:42 (Plavix) 75 mg DAILY PO 10/16/17 11:00 10/17/17 08:47 (Depakote Er) 1,000 mg DAILY PO 10/16/17 11:00 10/17/17 08:48 (Neurontin) 300 mg TID PO 10/16/17 13:00 10/17/17 13:42 (Glucotrol) 10 mg BIDAC PO 10/16/17 11:00 10/17/17 06:23 (Desyrel) 150 mg HS PO 10/16/17 21:00 10/16/17 21:00 (Pravachol) 80 mg DAILY PO 10/16/17 12:00 10/17/17 08:47 Miscellaneous Information 1 Q24H T-DERMAL 10/17/17 09:00 (Effexor Xr) 150 mg DAILY PO 10/17/17 09:00 10/17/17 08:47 (Duoneb Neb) 1 ampule QID NEB NEB 10/16/17 17:00 10/17/17 11:47 (Symbicort 160-4.5 Mcg Inh) 1 puff Q12HR INH 10/16/17 21:00 10/17/17 09:00 (Ecotrin Ec) 81 mg DAILY PO 10/17/17 09:00 10/17/17 08:47 (Synthroid) 50 mcg DAILY@0600 PO 10/17/17 06:00 10/17/17 06:00 Family Psych History Father with bipolar disorder, no suicides in the family. Social History , domiciled with son, unemployed, , no asked to firearms, on SSI. Collateral contact is patient's son Jose Ramon Rhodes II ([phone]). Patient's Strengths (min. 2) Verbal and communicative Physical Exam Patient not noted to be in acute distress, no gross motor abnormalities, no tremors or EPS, no noted psychomotor retardation or agitation. Vital Signs Vital Signs Date Time Temp Pulse Resp B/P (MAP) Pulse Ox O2 Delivery O2 Flow Rate FiO2 10/17/17 08:55 98 Nasal Cannula 2.00 10/17/17 05:53 98.1 77 19 130/59 (82) I/O 10/17/17 10/17/17 10/18/17 08:00 16:00 00:00 Intake Total 720 ml Balance 720 ml Lab Results Test 10/17/17 07:05 Blood Urea Nitrogen 14 MG/DL Creatinine 0.93 MG/DL Random Glucose 83 MG/DL Calcium Level 9.3 MG/DL Sodium Level 139 MEQ/L Potassium Level 4.1 MEQ/L Chloride Level 101 MEQ/L Carbon Dioxide Level 28.9 MEQ/L Anion Gap 9 MEQ/L Estimat Glomerular Filtration Rate 81 ML/MIN Triglycerides Level 122 MG/DL Cholesterol Level 98 MG/DL LDL Cholesterol 40 MG/DL HDL Cholesterol 33.9 MG/DL Cholesterol/HDL Ratio 2.89 RATIO Mental Status Examination Appearance: Disheveled Consciousness: Alert Orientation: x4 Speech: Unremarkable Language: Adequate Fund of Knowledge: Adequate Attention and Concentration: Adequate Memory: Unremarkable Mood: Sad, Anxious Affect: Sad, Anxious, Other (Tearful at times) Thought Process & Associations: Intact Thought Content: Appropriate Hallucination Type: None Delusion Type: None Suicidal Ideation: No Suicidal Plan: No Suicidal Intention: No Homicidal Ideation: Yes Homicidal Plan: Yes Homicidal Intention: Yes Insight: Fair Judgment: Impulsive Assessment & Plan Problem List: (1) Bipolar disorder ICD Codes: F31.9 - Bipolar disorder, unspecified Status: Acute Assessment & Plan Estimated LOS: 5-7 days. Patient is a 67-year-old man who carries a diagnosis of bipolar disorder versus schizoaffective disorder, multiple psychiatric admissions, 2 previous suicide attempts, was brought into the ED accompanied by son due to worsening depression the context of recent discord with son and friend. Patient this time continues to endorse depressive symptoms are to be tearful slightly dysphoric due to recent argument with friend son. We will resume patient on venlafaxine 150 mg p.o. daily, Depakote 1000 mg p.o. daily, trazodone 150 mg p.o. at bedtime, we will continue patient on medication regimen for chronic medical illnesses. Hospitalist input appreciated. Continue monitor mood and behavior. Collateral formation pending from patient's son, social work intervention for psychosocial assessment. Discharge planning in progress. Discharge Planning Patient return back to his residence was psychiatrically stable. Nayan Duran MD October 17, 2017 15:12
[2017-10-17 15:56] LABS: HEMOGLOBIN A1C 7.4 % (4.3-6.0)
[2017-10-17 18:11] VITALS: BP 112/53; PULSE 88; RESP 18; TEMP 98.2; O2SAT 99
[2017-10-17 20:19] VITALS: O2SAT 99
[2017-10-17] MEDS: traZODone HCL 50 MG TAB PO SCH (20:49)
[2017-10-18 04:34] VITALS: BP 112/55; PULSE 88; RESP 16; TEMP 98; O2SAT 95
[2017-10-18] MEDS: glipiZIDE 10 MG TAB PO SCH (05:53)
[2017-10-18] MEDS: LEVOTHYROXINE SODIUM 50 MCG TAB PO SCH (05:53)
[2017-10-18] MEDS: CARBIDOPA/LEVODOPA 10 MG/100 MG TAB PO SCH (05:53)
[2017-10-18] MEDS: INSULIN NovoLIN REGULAR SUPPLEMENTAL SCALE SQ SCH ×2 (08:00→12:13)
--- NOTE | 2017-10-18 08:10 | HHI.PR ---
Subjective Remarks Follow-up visit for COPD, hypothyroidism, HTN and DM. Nurse does not report any concerns overnight or this morning. Patient is seen and examined sitting up in bed eating breakfast in no acute distress. He reports insomnia overnight , requesting something for sleep. Denies any shortness of breath, cough, fevers , chills, nausea, vomiting, headache or dizziness. He reports one episode of diarrhea yesterday, none since then. Objective Vitals Vital Signs Date Time Temp Pulse Resp B/P (MAP) Pulse Ox O2 Delivery O2 Flow Rate FiO2 10/18/17 04:34 98.0 88 16 112/55 (74) 95 10/17/17 20:19 99 Nasal Cannula 2.00 10/17/17 18:11 98.2 88 18 112/53 (72) 99 10/17/17 08:55 98 Nasal Cannula 2.00 I/O 10/17/17 10/17/17 10/17/17 10/18/17 10/18/17 10/18/17 07:00 15:00 23:00 07:00 15:00 23:00 Intake Total 720 ml 1200 ml 240 ml Balance 720 ml 1200 ml 240 ml Intake Oral 720 ml 1200 ml 240 ml # Voids 1 1 Result Diagram: 10/15/17 2315 10/17/17 0705 Objective Remarks GENERAL: Well-developed male. No acute distress. SKIN: Cool and dry. HEAD: Atraumatic. Normocephalic. EYES: Pupils equal round. No scleral icterus. No injection or drainage. ENT: Nose without bleeding. Airway patent. NECK: Trachea midline. No JVD. CARDIOVASCULAR: Regular rate and rhythm without murmurs, gallops, or rubs. RESPIRATORY: Mild diffused posterior lobe expiratory wheezing. No crackles or rhonchi. No use of accessory muscles, no dyspnea. GASTROINTESTINAL: Abdomen soft, non-tender, nondistended. No guarding. MUSCULOSKELETAL: Extremities without clubbing, cyanosis, or edema. No calf tenderness. NEUROLOGICAL: Awake and alert. Cranial nerves II through XII grossly intact. Motor and sensory grossly within normal limits. Speech is clear. A/P Problem List: (1) Bipolar disorder ICD Code: F31.9 - Bipolar disorder, unspecified Status: Acute (2) Hypothyroidism ICD Code: E03.9 - Hypothyroidism, unspecified Status: Chronic (3) Abnormal thyroid blood test ICD Code: R94.6 - Abnormal results of thyroid function studies Status: Acute (4) CAD (coronary artery disease) ICD Code: I25.10 - Atherosclerotic heart disease of [place] coronary artery without angina pectoris Status: Chronic (5) HTN (hypertension) ICD Code: I10 - Essential (primary) hypertension Status: Chronic (6) COPD (chronic obstructive pulmonary disease) ICD Code: J44.9 - Chronic obstructive pulmonary disease, unspecified Status: Acute Assessment and Plan 67-year-old male admitted to the psychiatric unit for bipolar disorder. Hospitalist service following for medical management. Bipolar disorder: - Management per psychiatry COPD: Patient is oxygen dependent. Does use breathing treatments at home 4 times daily. -Continue supplemental oxygen. -Continue duo nebs 4 times daily and Symbicort, discussed with patient purpose of medication. -Smoking cessation encouraged. Hypothyroidism: - TSH low. Patient reports compliance with levothyroxine. - Continue increased dose of levothyroxine at 50 mcg daily. Outpatient follow- up for repeat TSH in 6 weeks Coronary artery disease status post stent and CABG. -Continue aspirin, Plavix, statin. No beta hermila for now secondary to COPD. Hypertension. Stable continue to monitor. Diabetes mellitus, moderately controlled -Hemoglobin A1c 7.4 -Accu-Cheks with insulin sliding scale, continue glipizide Hyperlipidemia. Continue statin Urinary frequency -Afebrile, UA with culture not indicated. -Urinary frequency likely due to BPH DVT prophylaxis-ambulation Discussed with patient and nurse. Possible discharge today, pending psychiatry follow-up. Problem Qualifiers (1) Hypothyroidism: Qualified Codes: E03.9 - Hypothyroidism, unspecified (2) COPD (chronic obstructive pulmonary disease): Qualified Codes: J44.9 - Chronic obstructive pulmonary disease, unspecified Kalani Kingsley Oct 18, 2017 08:10
[2017-10-18 08:33] VITALS: O2SAT 97
[2017-10-18] MEDS: RESP: ALBUTEROL 2.5 MG/IPRATROPIUM 0.5 MG NEB (SCH) NEB (08:33)
[2017-10-18 08:49] LABS: BILIRUBIN, URINE NEG (NEG); BLOOD, URINE NEG (NEG); GLUCOSE,URINE NEG (NEG); KETONE, URINE 10 mg/dL (NEG); MUCUS URINE FEW /lpf (OCC); NITRITE,URINE NEG (NEG); PH, URINE 5.5 (5.0-8.5); SQUAMOUS EPITHELIAL CELL URINE <1 /hpf (0-5); URINE COLOR YELLOW (YELLW/STRAW); URINE LEUKOCYTE ESTERASE SMALL (NEG)
[2017-10-18] MEDS ORDERED: TRAZ50TA12 PO (10:13)
[2017-10-18] MEDS ORDERED: CARB10TA2 PO (10:13)
[2017-10-18] MEDS ORDERED: VENL75TA PO (10:13)
[2017-10-18] MEDS ORDERED: DEPA500T3 PO (10:13)
[2017-10-18] MEDS ORDERED: LEVO.05 PO (10:13)
[2017-10-18] MEDS ORDERED: BUSP10TA PO (10:13)
[2017-10-18] MEDS ORDERED: GABA300C5 PO (10:13)
[2017-10-18] MEDS: GABAPENTIN 300 MG CAP PO SCH ×2 (10:15→12:15)
--- NOTE | 2017-10-18 10:15 | HHI.DS ---
Psychiatry Discharge Summary Inpatient Psychiatric care?: Yes Advance Directive: No Reason Not Provided: Due to Patient Condition Mental Health AdvanceDirective: No Health Care Proxy: No Admission Admission Date October 16, 2017 at 10:50 Admission Diagnosis: (1) Bipolar disorder ICD Code: F31.9 - Bipolar disorder, unspecified Brief History Patient is a 67 y/o man, , , unemployed on SSI, domiciled with son, past psychiatric history of bipolar disorder vs. schizoaffective disorder, prior psychiatric admissions, two previous suicide attempts, past medical history of hypertension, CAD s/p triple bypass, Parkinson, DM, HLD, COPD , hypothyroidism, who presented to the ED accompanied by son endorsing worsening depression in the context of discord with friend and son which patient was admitted to the inpatient psychiatry unit for further evaluation and management. Patient was found sitting on hospital bed, calm and cooperative. He states that recently he has been feeling more depressed with decreased sleep, appetite with no change in concentration and denying any suicidal ideation. He states that he had been having thoughts of harming a drunk friend who was irritating him, "running his mouth", prior to admission which he was able to walk away from. Stressors were explored which he reported contributed to his worsening depression was his argument with his friend and "life in general". Rest of psychiatric ROS were negative, no manic or psychotic symptoms nor any delusional material elicited. Currently he reports feeling depressed, denies SI, HI, AVH or delusions. Family psychiatric history: father with bipolar disorder, denies any suicides in the family. Past psychiatric history: Previous psychiatric diagnosis of bipolar disorder versus schizoaffective disorder, 5 previous psychiatric admissions (last time in August here at [facility]), reports 2 previous suicide attempts via overdose, has outpatient provider [facility], last seen 2 weeks ago with follow-up appointment next due on 11/06/17. Substance use history: Tobacco use (+), marijuana use "occasionally" Past medical history HTN, CAD status post triple bypass, Parkinson's, DM, HLD, COPD, hypothyroidism Allergies: NKDA Social history: , domiciled with son, unemployed, , no asked to firearms, on SSI. Collateral contact is patient's son Jose Ramon Rhodes II ). Tobacco Use In Past 30 Days: 4 or Less Cigarettes/Day Alcohol Use: Monthly or Less Hospital Course Patient is a 67 y/o man, , , unemployed on SSI, domiciled with son, past psychiatric history of bipolar disorder vs. schizoaffective disorder, prior psychiatric admissions, two previous suicide attempts, past medical history of hypertension, CAD s/p triple bypass, Parkinson, DM, HLD, COPD , hypothyroidism, who presented to the ED accompanied by son endorsing worsening depression in the context of discord with friend and son which patient was admitted to the inpatient psychiatry unit for further evaluation and management. Patient continued on venlafaxine 150mg PO daily, Depakote 1000mg PO HS, trazodone 150mg PO HS, and continued on medication regimen for chronic medical illnesses which patient tolerated well with no notable adverse drug reactions. Patient was noted with reported depressive symptoms along with vague psychosocial stressors and recent dispute with friend. He did not endorse any manic or psychotic symptoms, and no longer endorsed SI after transfer to the inpatient psychiatry unit. As patient continued with treatment , he was noted to have improvement in mood, and continued to deny SI. Patient was noted with stable mood, was noted to participate in self care, engaging with staff and maintaining adequate hygiene. Treatment team was able to set up outpatient follow up appointments which the patient can continue with current medication regimen. Upon discharge patient stated that she was feeling good, reported well with the treatment, as well as motivation to continue recommendations and denied any SI, HI, perceptual disturbances or delusions. Weighing the acute, chronic, and protective factors and based on the available evidence, I coke inspector to a reasonable degree of medical certainty that the patient is at low imminent risk of harm to self or others from a mental illness as defined under the [place] act and his level of function is adequate as observed on the unit for planned level of outpatient care. He was counseled regarding warning signs for need to return to the psychiatric emergency room as part of a general safety plan. Patient advised to call 911 or go nearest ED in case of emergency. Patient agreed with plan. Results Blood Pressure 112 / 55 Vital Signs Date Time Temp Pulse Resp B/P (MAP) Pulse Ox O2 Delivery O2 Flow Rate FiO2 10/18/17 08:33 97 Nasal Cannula 2.00 10/18/17 04:34 98.0 88 16 112/55 (74) Laboratory Tests Test 10/15/17 23:15 10/16/17 11:54 10/17/17 07:05 10/18/17 08:16 Urine Ketones 10 mg/dL (NEG) 10 mg/dL (NEG) Urine Leukocyte Esterase TRACE (NEG) SMALL (NEG) Urine Mucus FEW /lpf (OCC) FEW /lpf (OCC) Blood Urea Nitrogen 29 MG/DL (7-18) Creatinine 1.47 MG/DL (0.60-1.30) Random Glucose 61 MG/DL (74-106) Alanine Aminotransferase (ALT/SGPT) 11 U/L (12-78) Estimat Glomerular Filtration Rate 48 ML/MIN (>89) 81 ML/MIN (>89) Thyroid Stimulating Hormone 3rd Gen 5.210 uIU/ML (0.358-3.740) Salicylates Level 1.9 MG/DL (2.8-20.0) Acetaminophen Level LESS THAN 2.0 MCG/ML Free Triiodothyronine (T3) pg/dL 2.14 PG/ML (2.18-3.98) Valproic Acid (Depakene) Level 30 MCG/ML (50-100) Hemoglobin A1c 7.4 % (4.3-6.0) Cholesterol Level 98 MG/DL (120-200) HDL Cholesterol 33.9 MG/DL (40.0-60.0) Urine WBC 7 /hpf (0-5) Laboratory Results Test 10/16/17 11:54 10/17/17 07:05 Valproic Acid (Depakene) Level 30 MCG/ML (50-100) Cholesterol Level 98 MG/DL (120-200) HDL Cholesterol 33.9 MG/DL (40.0-60.0) Hemoglobin A1c 7.4 % (4.3-6.0) LDL Cholesterol 40 MG/DL (0-99) Triglycerides Level 122 MG/DL (42-150) Summary of Procedures none Pending results at discharge: No Medications # of Antipsychotic meds at D/C: 0 Approp Antipsych med options 1 - Minimum of three failed multiple trials of monotherapy. 2 - Documented plan to taper to monotherapy due to previous use of multiple meds OR cross-taper in progress at D/C. 3 - Documentation of augmentation of Clozapine. 4 - Justification other than those listed in allowable values 1-3, document here : Discharge Discharge Date: Oct 18, 2017 Discharge Diagnosis: (1) Bipolar disorder ICD Code: F31.9 - Bipolar disorder, unspecified Status: Acute Pt Condition on Discharge: Stable Discharge Disposition: Discharge Home Discharge Instructions Diet Instructions: Heart Healthy Diet Discharge Time > 30 minutes Mental Status Examination Appearance: Disheveled Consciousness: Alert Orientation: x4 Speech: Unremarkable Language: Adequate Fund of Knowledge: Adequate Attention and Concentration: Adequate Memory: Unremarkable Mood: Appropriate Affect: Appropriate Thought Process & Associations: Intact Thought Content: Appropriate Hallucination Type: None Delusion Type: None Suicidal Ideation: No Suicidal Plan: No Suicidal Intention: No Homicidal Ideation: No Homicidal Plan: No Homicidal Intention: No Insight: Fair Judgment: Impulsive Discharge/Advance Care Plan Health Problems: (1) Bipolar disorder Goals to promote your health * To prevent worsening of your condition and complications * To maintain your health at the optimal level Directions to meet your goals Take your medications as prescribed Follow your dietary instruction Follow activity as directed Keep your appointments as scheduled Take your immunizations and boosters as scheduled If your symptoms worsen call your PCP, if no PCP go to Urgent Care Center or Emergency Room For 10/12 questions related to your inpatient stay or results of tests pending at discharge, please contact Dr. Nayan Duran at Smoking is Dangerous to Your Health. Avoid second hand smoking Nayan Duran MD Oct 18, 2017 10:15
[2017-10-18] MEDS: PRAVASTATIN SOD 80 MG TAB PO SCH (10:16)
[2017-10-18] MEDS: VENLAFAXINE HCL XR 75 MG CAP PO SCH (10:17)
[2017-10-18] MEDS: ASPIRIN EC 81 MG TABEC PO SCH (10:19)
[2017-10-18] MEDS: CLOPIDOGREL 75 MG TAB PO SCH (10:19)
[2017-10-18] MEDS: busPIRone HCL 10 MG TAB PO SCH ×2 (10:20→12:15)
[2017-10-18] MEDS: DIVALPROEX SODIUM E.R. 500 MG TAB PO SCH (10:21)
[2017-10-18] MEDS: BUDESONIDE-FORMOTEROL 160/4.5 MCG INHALER INH SCH (10:25)
[2017-10-18] MEDS: NICOTINE 21 MG/24 HR PATCH T-DERMAL SCH (10:26)
[2017-10-18] MEDS: REMOVE OLD PATCH T-DERMAL SCH (10:27)
[2017-10-18] MEDS ORDERED: Budeson-Formot 160-4.5 Mcg Inh INH (11:21)
[2017-10-18] MEDS ORDERED: Albuterol-Ipratropium Neb NEB (11:21)
== END 2017-10-18 12:45 | disposition home or self-care (01) | DRG 885 ==
LOC: NEPD 22:07 → NEDA 10-16 10:50 → H4EA 10-16 12:25
PROVIDERS: ADMIT Student in an Organized Health Care Education/Training Program; ATTEND Student in an Organized Health Care Education/Training Program
DX: F31.9 Bipolar disorder, unspecified (principal); G20 Parkinson's disease; Z99.81 Dependence on supplemental oxygen; J44.9 Chronic obstructive pulmonary disease, unspecified; E11.9 Type 2 diabetes mellitus without complications; Z79.84 Long term (current) use of oral hypoglycemic drugs; Z81.8 Family history of other mental and behavioral disorders; I10 Essential (primary) hypertension; I25.10 Atherosclerotic heart disease of native coronary artery without angina pectoris; Z95.1 Presence of aortocoronary bypass graft; Z95.5 Presence of coronary angioplasty implant and graft; Z79.02 Long term (current) use of antithrombotics/antiplatelets; Z79.82 Long term (current) use of aspirin; E78.5 Hyperlipidemia, unspecified; E03.9 Hypothyroidism, unspecified; F12.90 Cannabis use, unspecified, uncomplicated; F17.210 Nicotine dependence, cigarettes, uncomplicated; H91.91 Unspecified hearing loss, right ear; R35.0 Frequency of micturition; N40.1 Benign prostatic hyperplasia with lower urinary tract symptoms
CPT/HCPCS: 80048; 80053; 80061; 80164; 80307; 81001; 82948; 83036; 84439; 84443; 84481; 85025; 93005; 94640; 94664; 96360; 96361; J7030